=== PATIENT | male | born 1955 | race Caucasian/White ===

== ENCOUNTER 2025-02-26 07:23 | Inpatient (IN) | payer MEDICARE, SELFPAY ==
[2025-02-26] VITALS (201 sets, daily range): BP systolic 64–144; BP diastolic 32–90; PULSE 80–151; RESP 14–27; TEMP 34.5–37.3; O2SAT 91–100; BMI 20.2; BMI 21.9
--- NOTE | 2025-02-26 07:29 | ED.WEAKNESS ---
HPI - Weakness General Chief complaint: Altered Mental Status Stated complaint: Diarrhea x3days History of Present Illness HPI Narrative: 69-year-old gentleman with no significant past medical or surgical history presents via EMS with multiple episodes of diarrhea since along with nonbilious nonbloody vomiting today given 50 of Benadryl and 4 Zofran by EMS prior to arrival for rash on his chest. Patient denies any recent antibiotic use, sick contacts, chest pain, lightheadedness, fever, chills, body aches, cough, sore throat, abdominal pain, back pain, urinary complaints. Other than what is stated 14 point review of system is negative. Related Data Allergies Allergy/AdvReac Type Severity Reaction Status Date / Time No Known Drug Allergies Allergy Verified 02/26/25 08:06 Review of Systems Review of Systems ROS Unobtainable: All systems reviewed & are unremarkable except as noted in HPI and below Patient History Social History Smoking Status: Never smoker Exam Narrative Exam Narrative: GENERAL: [69] year old patient appears stated age. Well-developed patient, in mild distress. HEAD: Atraumatic. Normocephalic. EYES: Pupils equal round and reactive. Extraocular motions intact. No scleral icterus. No injection or drainage. ENT: Nose without bleeding, purulent drainage. Throat without erythema, tonsillar hypertrophy or exudate. Airway patent. Swelling upper lip NECK: Trachea midline. Non tender CARDIOVASCULAR: Tachycardic irregularly irregular rate and rhythm without murmurs, gallops, or rubs. RESPIRATORY: Clear to auscultation. Breath sounds equal bilaterally. No wheezes, rales, or rhonchi. GASTROINTESTINAL: Abdomen soft, non-tender, nondistended. EXTREMITIES: No edema or joint tenderness. BACK: Nontender without deformity or crepitance. No flank tenderness. NEURO: AOx3. SKIN: No rash or erythema of visible areas Initial Vital Signs Initial Vital Signs: Vital Signs Pulse Rate 151 H 02/26/25 07:31 Course Orders Ordered: ED Orders 02/26/25 07:36 XR chest 1V Stat EKG-12 Lead Stat 02/26/25 07:37 Clostridium Difficile Tox PCR Stat 02/26/25 07:50 Complete Blood Count AUTO DIFF Stat Comprehensive Metabolic Panel Stat Lactate (Lactic Acid) Stat Lipase Stat MAG [Magnesium] Stat PTT Partial Thromboplastin Antoine Stat Procalcitonin Stat Prothrombin Time INR Stat Troponin I Stat 02/26/25 07:55 Blood Culture Stat 02/26/25 08:09 Covid-19 + FLU A/B + RSV - PCR Stat 02/26/25 08:14 CT abdomen pelvis w con Stat 02/26/25 08:28 Venous Blood Gas Routine 02/26/25 08:45 UA Complete [Urinalysis and Microscopic] Stat 02/26/25 09:36 EKG-12 Lead Stat 02/26/25 09:53 TSH [Thyroid Stimulating Hormone] Stat 02/26/25 10:25 Trop I [Troponin I] Stat NOREPINEPHRINE BITARTRATE/D5W (Levophed) 4 mg in 250 mls @ 26.175 mls/hr IV TITRATE ARTURO; Protocol Last Admin: 02/26/25 09:24 Dose: 0.1 mcg/kg/min, 26.175 mls/hr Documented By: JESSICA Ondansetron HCl (Ondansetron 4 Mg/2 Ml Inj) 4 mg IV NOW PRN PRN Reason: Nausea And Vomiting Ondansetron HCl (Ondansetron 4 Mg Odt) 4 mg PO NOW PRN PRN Reason: Nausea And Vomiting Discontinued Medications Ceftriaxone Sodium 2,000 mg/ (Sodium Chloride) 100 mls @ 200 mls/hr IV NOW ONE Stop: 02/26/25 09:11 Last Infusion: 02/26/25 10:07 Dose: Infused Documented By: Admin: 02/26/25 09:24 Dose: 200 mls/hr Documented By: JESSICA Lactated Ringer's (Lactated Ringers) 1,000 mls @ 1,000 mls/hr IV BOLUS ONE Stop: 02/26/25 10:28 Last Infusion: 02/26/25 10:00 Dose: Infused Documented By: Admin: 02/26/25 09:30 Dose: 1,000 mls/hr Documented By: NELDAF Lactated Ringer's (Lactated Ringers) 1,000 mls @ 1,000 mls/hr IV BOLUS ONE Stop: 02/26/25 08:39 Last Infusion: 02/26/25 08:05 Dose: Infused Documented By: Admin: 02/26/25 07:40 Dose: 1,000 mls/hr Documented By: JESSICA Lactated Ringer's (Lactated Ringers) 1,000 mls @ 1,000 mls/hr IV BOLUS ONE Stop: 02/26/25 09:29 Last Infusion: 02/26/25 09:00 Dose: Infused Documented By: Admin: 02/26/25 08:30 Dose: 1,000 mls/hr Documented By: JESSICA Lactated Ringer's (Lactated Ringers) 1,000 mls @ 1,000 mls/hr IV BOLUS ONE Stop: 02/26/25 08:59 Last Infusion: 02/26/25 08:30 Dose: Infused Documented By: Admin: 02/26/25 08:00 Dose: 1,000 mls/hr Documented By: NELDAF Lactated Ringer's (Lactated Ringers) 1,000 mls @ 1,000 mls/hr IV BOLUS ONE Stop: 02/26/25 09:59 Last Infusion: 02/26/25 09:30 Dose: Infused Documented By: Admin: 02/26/25 09:00 Dose: 1,000 mls/hr Documented By: JESSICA Vital Signs Vital signs: Vital Signs - 8 hr 02/26/25 07:31 02/26/25 07:32 02/26/25 07:32 Temperature Pulse Rate 151 H 134 H Respiratory Rate 23 Blood Pressure 78/40 L Pulse Oximetry Oxygen Delivery Method 02/26/25 07:35 02/26/25 07:37 02/26/25 07:37 Temperature Pulse Rate 140 H 135 H Respiratory Rate 26 H 24 Blood Pressure 75/44 L Pulse Oximetry 92 Oxygen Delivery Method Room Air 02/26/25 07:40 02/26/25 07:41 02/26/25 07:41 Temperature Pulse Rate 126 H 127 H Respiratory Rate 25 H 25 H Blood Pressure 64/44 L Pulse Oximetry 94 Oxygen Delivery Method 02/26/25 07:43 02/26/25 07:43 02/26/25 07:45 Temperature Pulse Rate 119 H Respiratory Rate 23 Blood Pressure 70/41 L 78/35 L Pulse Oximetry Oxygen Delivery Method 02/26/25 07:45 02/26/25 07:45 02/26/25 07:50 Temperature Pulse Rate 122 H Respiratory Rate 25 H Blood Pressure 78/35 L 76/32 L Pulse Oximetry Oxygen Delivery Method 02/26/25 07:50 02/26/25 07:50 02/26/25 07:55 Temperature 94.6 F L Pulse Rate 125 H 117 H Respiratory Rate 24 22 Blood Pressure 76/32 L Pulse Oximetry 98 98 Oxygen Delivery Method 02/26/25 07:58 02/26/25 07:58 02/26/25 08:00 Temperature 95.2 F L Pulse Rate 113 H Respiratory Rate 22 Blood Pressure 78/48 L 80/37 L Pulse Oximetry 97 Oxygen Delivery Method 02/26/25 08:00 02/26/25 08:05 02/26/25 08:05 Temperature 95.2 F L 95.2 F L Pulse Rate 110 H 108 H Respiratory Rate 24 23 Blood Pressure 81/43 L Pulse Oximetry 97 97 Oxygen Delivery Method 02/26/25 08:06 02/26/25 08:10 02/26/25 08:10 Temperature 96.2 F L 94.8 F L Pulse Rate 115 H 113 H Respiratory Rate 26 H 23 Blood Pressure 67/38 L 88/54 L Pulse Oximetry 94 97 Oxygen Delivery Method Room Air 02/26/25 08:15 02/26/25 08:15 02/26/25 08:20 Temperature 94.6 F L 94.5 F L Pulse Rate 117 H 110 H Respiratory Rate 26 H 25 H Blood Pressure 81/52 L Pulse Oximetry 96 95 Oxygen Delivery Method 02/26/25 08:21 02/26/25 08:21 02/26/25 08:25 Temperature 94.5 F L 94.3 F L Pulse Rate 108 H 111 H Respiratory Rate 25 H 23 Blood Pressure 117/58 L Pulse Oximetry 95 96 Oxygen Delivery Method 02/26/25 08:25 02/26/25 08:30 02/26/25 08:33 Temperature 94.1 F L Pulse Rate 117 H Respiratory Rate 19 Blood Pressure 124/65 134/90 Pulse Oximetry 97 Oxygen Delivery Method 02/26/25 08:33 02/26/25 08:43 02/26/25 08:44 Temperature 94.1 F L 94.1 F L Pulse Rate 111 H 138 H Respiratory Rate 25 H Blood Pressure 133/59 L Pulse Oximetry 97 Oxygen Delivery Method 02/26/25 08:44 02/26/25 08:45 02/26/25 08:46 Temperature 94.1 F L 94.3 F L Pulse Rate 115 H 116 H Respiratory Rate 22 23 Blood Pressure 100/62 Pulse Oximetry 98 98 Oxygen Delivery Method 02/26/25 08:46 02/26/25 08:50 02/26/25 08:52 Temperature 94.3 F L 94.3 F L Pulse Rate 117 H 115 H Respiratory Rate 23 23 Blood Pressure 129/58 L Pulse Oximetry 98 97 Oxygen Delivery Method 02/26/25 08:52 02/26/25 08:55 02/26/25 08:55 Temperature 94.3 F L 94.5 F L Pulse Rate 114 H 109 H Respiratory Rate 21 21 Blood Pressure 98/52 L Pulse Oximetry 97 96 Oxygen Delivery Method 02/26/25 09:00 02/26/25 09:00 02/26/25 09:05 Temperature 94.6 F L 94.6 F L Pulse Rate 110 H 114 H Respiratory Rate 20 21 Blood Pressure 93/44 L Pulse Oximetry 96 97 Oxygen Delivery Method 02/26/25 09:05 02/26/25 09:10 02/26/25 09:10 Temperature 94.8 F L Pulse Rate 95 H Respiratory Rate 20 Blood Pressure 84/43 L 83/50 L Pulse Oximetry 96 Oxygen Delivery Method 02/26/25 09:15 02/26/25 09:15 02/26/25 09:20 Temperature 95.0 F L Pulse Rate 102 H Respiratory Rate 16 Blood Pressure 88/50 L 96/55 L Pulse Oximetry 97 Oxygen Delivery Method 02/26/25 09:20 02/26/25 09:25 02/26/25 09:25 Temperature 95.0 F L 95.0 F L Pulse Rate 94 H 99 H Respiratory Rate 19 19 Blood Pressure 106/62 Pulse Oximetry 97 97 Oxygen Delivery Method 02/26/25 09:30 02/26/25 09:31 02/26/25 09:31 Temperature 95.2 F L 95.2 F L Pulse Rate 93 H 98 H Respiratory Rate 19 17 Blood Pressure 108/59 L Pulse Oximetry 97 97 Oxygen Delivery Method 02/26/25 09:35 02/26/25 09:35 02/26/25 09:40 Temperature 95.4 F L 95.5 F L Pulse Rate 95 H 97 H Respiratory Rate 18 20 Blood Pressure 103/72 Pulse Oximetry 98 97 Oxygen Delivery Method 02/26/25 09:40 02/26/25 09:45 02/26/25 09:45 Temperature 95.7 F L Pulse Rate 102 H Respiratory Rate 18 Blood Pressure 99/56 L 108/68 Pulse Oximetry 98 Oxygen Delivery Method 02/26/25 09:50 02/26/25 09:51 02/26/25 09:51 Temperature 95.9 F L 95.9 F L Pulse Rate 95 H 96 H Respiratory Rate 20 20 Blood Pressure 105/50 L Pulse Oximetry 98 98 Oxygen Delivery Method 02/26/25 09:55 02/26/25 09:55 02/26/25 10:00 Temperature 96.1 F L 96.3 F L Pulse Rate 99 H 102 H Respiratory Rate 19 21 Blood Pressure 99/62 Pulse Oximetry 99 99 Oxygen Delivery Method 02/26/25 10:00 02/26/25 10:05 02/26/25 10:05 Temperature 96.3 F L Pulse Rate 96 H Respiratory Rate 18 Blood Pressure 98/73 103/67 Pulse Oximetry 100 Oxygen Delivery Method 02/26/25 10:10 02/26/25 10:10 02/26/25 10:14 Temperature 96.4 F L 96.6 F L Pulse Rate 92 H 97 H Respiratory Rate 19 20 Blood Pressure 100/65 Pulse Oximetry 99 100 Oxygen Delivery Method 02/26/25 10:14 02/26/25 10:15 02/26/25 10:15 Temperature 96.6 F L Pulse Rate 99 H Respiratory Rate 19 Blood Pressure 106/71 113/75 Pulse Oximetry 100 Oxygen Delivery Method 02/26/25 10:20 02/26/25 10:21 02/26/25 10:21 Temperature 96.8 F L 97.0 F L Pulse Rate 100 H 103 H Respiratory Rate 21 17 Blood Pressure 117/76 Pulse Oximetry 100 100 Oxygen Delivery Method 02/26/25 10:25 02/26/25 10:25 02/26/25 10:30 Temperature 97.0 F L 97.2 F L Pulse Rate 98 H 101 H Respiratory Rate 20 19 Blood Pressure 117/67 Pulse Oximetry 100 100 Oxygen Delivery Method 02/26/25 10:30 02/26/25 10:35 02/26/25 10:36 Temperature 97.3 F L 97.3 F L Pulse Rate 107 H 106 H Respiratory Rate 18 19 Blood Pressure 110/69 Pulse Oximetry 100 100 Oxygen Delivery Method 02/26/25 10:36 02/26/25 10:40 02/26/25 10:40 Temperature 97.5 F L Pulse Rate 107 H Respiratory Rate 18 Blood Pressure 120/55 L 121/58 L Pulse Oximetry 100 Oxygen Delivery Method 02/26/25 10:45 02/26/25 10:45 02/26/25 10:50 Temperature 97.7 F 97.7 F Pulse Rate 118 H 119 H Respiratory Rate 17 21 Blood Pressure 122/64 Pulse Oximetry 100 100 Oxygen Delivery Method 02/26/25 10:50 02/26/25 10:55 02/26/25 10:55 Temperature 97.9 F Pulse Rate 129 H Respiratory Rate 25 H Blood Pressure 94/51 L 104/64 Pulse Oximetry 97 Oxygen Delivery Method 02/26/25 11:00 02/26/25 11:00 02/26/25 11:05 Temperature 98.1 F Pulse Rate 130 H Respiratory Rate 20 Blood Pressure 90/52 L 85/57 L Pulse Oximetry 93 Oxygen Delivery Method 02/26/25 11:05 02/26/25 11:10 Temperature 98.2 F 98.4 F Pulse Rate 127 H 115 H Respiratory Rate 19 19 Blood Pressure Pulse Oximetry 97 100 Oxygen Delivery Method MDM - Weakness Lab Data 02/26/25 07:50 02/26/25 07:50 Labs: Lab Results 02/26/25 02/26/25 02/26/25 Range/Units 07:33 07:50 08:09 WBC 9.6 (4.5-11.0) X10^3/uL RBC 6.41 H (4.5-5.9) X10^6/uL Hgb 19.1 H (13.5-17.5) g/dL Hct 58.2 H (41-53) % MCV 90.7 (80-100) fL MCH 29.8 (26-34) PG MCHC 32.8 (30-36) % RDW 14.3 (11.6-14.8) % Plt Count 325 (150-400) X10^3/uL Neut % (Auto) 84.6 H (50-75) % Lymph % (Auto) 10.0 L (25-40) % Burn[place] % (Auto) 4.5 (3-14) % Eos % (Auto) 0.4 L (2-4) % Baso % (Auto) 0.5 (0-2) % Neut # (Auto) 8100 H (1358-5291) /uL Lymph # (Auto) 1000 L (0209-0430) /uL Burnett # (Auto) 400 (0-900) /uL Eos # (Auto) 0 (0-450) /uL Baso # (Auto) 0 (0-100) /uL RBC Morphology Normal morphology PT 12.3 (9.4-12.5) SECONDS INR 1.1 (0.9-1.3) APTT 36 (25.1-36.5) SECONDS VBG pH (7.33-7.43) VBG pCO2 (45-50) mmHg VBG pO2 (35-45) mmHg VBG HCO3 (24-28) mmol/L VBG Total CO2 (24-29) mmol/L VBG O2 Saturation (70-75) % VBG Base Excess (0-4) mmol/L FiO2 % % Sodium 134 L (137-145) mmol/L Potassium 5.1 (3.4-5.1) mmol/L Chloride 110 H (98-107) mmol/L Carbon Dioxide 8 L* (22-32) mmol/L BUN 45 H (9-20) mg/dL Creatinine 3.22 H (0.66-1.25) mg/dL Estimated GFR 20 L (>60) mL/min BUN/Creatinine Ratio 14.0 (6-22) Glucose 135 H (70-99) mg/dL POC Whole Bld Glucose 141 H (70-99) mg/dL Lactate 3.3 H (0.7-2.1) mmol/L Calcium 8.4 (8.4-10.2) mg/dL Magnesium 2.1 (1.6-2.3) mg/dL Total Bilirubin 0.8 (0.2-1.3) mg/dL AST 40 (17-59) IU/L ALT 85 H (<50) IU/L Alkaline Phosphatase 114 (38-126) U/L Troponin I 0.044 H (0.01-0.034) ng/mL Total Protein 6.5 (6.3-8.2) g/dL Albumin 3.4 L (3.5-5.0) g/dL Globulin 3.1 (1.7-4.1) g/dL Albumin/Globulin Ratio 1.1 (1.0-2.8) Lipase 177 (23-300) U/L Procalcitonin 0.789 H (<0.5) ng/mL TSH (0.47-4.68) uIU/mL Urine Color Urine Appearance Urine pH (4.5-8.0) Ur Specific [place] (1.000-1.035) Urine Protein (Negative) Urine Glucose (UA) (Negative) g/dL Urine Ketones (NEGATIVE) Urine Occult Blood (Negative) Urine Nitrate (Negative) Urine Bilirubin (NEGATIVE) Urine Urobilinogen (0.2) E.U./dL Ur Leukocyte Esterase (NEGATIVE) Urine RBC (0-5/HPF) Urine WBC (0-5/HPF) Ur Squamous Epith Cells (0-5/HPF) Amorphous Sediment Urine Bacteria (None) Hyaline Casts (None) Ur Culture Indicated? Vol Urine Centrifuged SARS-CoV-2 (PCR) Negative (Negative) Influenza A (RT-PCR) Flu a negative (NEGATIVE) Influenza B (RT-PCR) Flu b negative (NEGATIVE) RSV (PCR) Negative (Negative) 02/26/25 02/26/25 02/26/25 Range/Units 08:28 08:45 09:53 WBC (4.5-11.0) X10^3/uL RBC (4.5-5.9) X10^6/uL Hgb (13.5-17.5) g/dL Hct (41-53) % MCV (80-100) fL MCH (26-34) PG MCHC (30-36) % RDW (11.6-14.8) % Plt Count (150-400) X10^3/uL Neut % (Auto) (50-75) % Lymph % (Auto) (25-40) % Burnett % (Auto) (3-14) % Eos % (Auto) (2-4) % Baso % (Auto) (0-2) % Neut # (Auto) (9444-7187) /uL Lymph # (Auto) (9176-1997) /uL Burnett # (Auto) (0-900) /uL Eos # (Auto) (0-450) /uL Baso # (Auto) (0-100) /uL RBC Morphology PT (9.4-12.5) SECONDS INR (0.9-1.3) APTT (25.1-36.5) SECONDS VBG pH 7.17 L* (7.33-7.43) VBG pCO2 26.8 L (45-50) mmHg VBG pO2 57 H (35-45) mmHg VBG HCO3 10 L (24-28) mmol/L VBG Total CO2 10 L (24-29) mmol/L VBG O2 Saturation 82 H (70-75) % VBG Base Excess -17.1 L (0-4) mmol/L FiO2 % 21 % % Sodium (137-145) mmol/L Potassium (3.4-5.1) mmol/L Chloride (98-107) mmol/L Carbon Dioxide (22-32) mmol/L BUN (9-20) mg/dL Creatinine (0.66-1.25) mg/dL Estimated GFR (>60) mL/min BUN/Creatinine Ratio (6-22) Glucose (70-99) mg/dL POC Whole Bld Glucose (70-99) mg/dL Lactate 3.1 H (0.7-2.1) mmol/L Calcium (8.4-10.2) mg/dL Magnesium (1.6-2.3) mg/dL Total Bilirubin (0.2-1.3) mg/dL AST (17-59) IU/L ALT (<50) IU/L Alkaline Phosphatase (38-126) U/L Troponin I (0.01-0.034) ng/mL Total Protein (6.3-8.2) g/dL Albumin (3.5-5.0) g/dL Globulin (1.7-4.1) g/dL Albumin/Globulin Ratio (1.0-2.8) Lipase (23-300) U/L Procalcitonin (<0.5) ng/mL TSH 10.1 H (0.47-4.68) uIU/mL Urine Color Yellow Urine Appearance Sl cloudy Urine pH 5.5 (4.5-8.0) Ur Specific [place] >=1.030 H (1.000-1.035) Urine Protein 1+ H (Negative) Urine Glucose (UA) Negative (Negative) g/dL Urine Ketones Trace H (NEGATIVE) Urine Occult Blood Negative (Negative) Urine Nitrate Negative (Negative) Urine Bilirubin Negative (NEGATIVE) Urine Urobilinogen 1.0 (0.2) E.U./dL Ur Leukocyte Esterase Negative (NEGATIVE) Urine RBC 0-1/hpf (0-5/HPF) Urine WBC 0-1/hpf (0-5/HPF) Ur Squamous Epith Cells 1-5 /hpf (0-5/HPF) Amorphous Sediment 2+ Urine Bacteria Occasional (0-1) (None) Hyaline Casts 5-10/lpf (None) Ur Culture Indicated? Cult not indicated Vol Urine Centrifuged 10ml (spun) SARS-CoV-2 (PCR) (Negative) Influenza A (RT-PCR) (NEGATIVE) Influenza B (RT-PCR) (NEGATIVE) RSV (PCR) (Negative) 02/26/25 Range/Units 10:25 WBC (4.5-11.0) X10^3/uL RBC (4.5-5.9) X10^6/uL Hgb (13.5-17.5) g/dL Hct (41-53) % MCV (80-100) fL MCH (26-34) PG MCHC (30-36) % RDW (11.6-14.8) % Plt Count (150-400) X10^3/uL Neut % (Auto) (50-75) % Lymph % (Auto) (25-40) % Burnett % (Auto) (3-14) % Eos % (Auto) (2-4) % Baso % (Auto) (0-2) % Neut # (Auto) (0374-1804) /uL Lymph # (Auto) (1423-7925) /uL Burnett # (Auto) (0-900) /uL Eos # (Auto) (0-450) /uL Baso # (Auto) (0-100) /uL RBC Morphology PT (9.4-12.5) SECONDS INR (0.9-1.3) APTT (25.1-36.5) SECONDS VBG pH (7.33-7.43) VBG pCO2 (45-50) mmHg VBG pO2 (35-45) mmHg VBG HCO3 (24-28) mmol/L VBG Total CO2 (24-29) mmol/L VBG O2 Saturation (70-75) % VBG Base Excess (0-4) mmol/L FiO2 % % Sodium (137-145) mmol/L Potassium (3.4-5.1) mmol/L Chloride (98-107) mmol/L Carbon Dioxide (22-32) mmol/L BUN (9-20) mg/dL Creatinine (0.66-1.25) mg/dL Estimated GFR (>60) mL/min BUN/Creatinine Ratio (6-22) Glucose (70-99) mg/dL POC Whole Bld Glucose (70-99) mg/dL Lactate (0.7-2.1) mmol/L Calcium (8.4-10.2) mg/dL Magnesium (1.6-2.3) mg/dL Total Bilirubin (0.2-1.3) mg/dL AST (17-59) IU/L ALT (<50) IU/L Alkaline Phosphatase (38-126) U/L Troponin I 0.049 H (0.01-0.034) ng/mL Total Protein (6.3-8.2) g/dL Albumin (3.5-5.0) g/dL Globulin (1.7-4.1) g/dL Albumin/Globulin Ratio (1.0-2.8) Lipase (23-300) U/L Procalcitonin (<0.5) ng/mL TSH (0.47-4.68) uIU/mL Urine Color Urine Appearance Urine pH (4.5-8.0) Ur Specific [place] (1.000-1.035) Urine Protein (Negative) Urine Glucose (UA) (Negative) g/dL Urine Ketones (NEGATIVE) Urine Occult Blood (Negative) Urine Nitrate (Negative) Urine Bilirubin (NEGATIVE) Urine Urobilinogen (0.2) E.U./dL Ur Leukocyte Esterase (NEGATIVE) Urine RBC (0-5/HPF) Urine WBC (0-5/HPF) Ur Squamous Epith Cells (0-5/HPF) Amorphous Sediment Urine Bacteria (None) Hyaline Casts (None) Ur Culture Indicated? Vol Urine Centrifuged SARS-CoV-2 (PCR) (Negative) Influenza A (RT-PCR) (NEGATIVE) Influenza B (RT-PCR) (NEGATIVE) RSV (PCR) (Negative) Imaging Data Chest x-ray: Radiologist Impression: [address] [address] XRay Report Signed Patient: Wicho Blackburn MR#: [id number] : 1955 Acct:[id number] Age/Sex: 69 / M Date of Service: 02/26/25 Loc: ED Accession Number: [id number] Procedure: XR chest 1V Ordering Provider: Satish Russo D.O. PROCEDURE: XR CHEST 1V INDICATIONS: suspected sepsis TECHNIQUE: One view of the chest was acquired. COMPARISON: None. FINDINGS: Surgical changes and devices: Resuscitation equipment overlies the patient. Lungs and pleura: Lungs are clear. No pleural effusions or pneumothorax. Mediastinum: Mediastinal contours appear normal. Heart size is normal. Bones and chest wall: No suspicious bony lesions. Overlying soft tissues appear unremarkable. IMPRESSION: No acute cardiopulmonary abnormality is seen. Dictated by: Parish Butler M.D. on 02/26/2025 at 8:06 Approved by: Parish Butler M.D. on 02/26/2025 at 8:07 CT scan - abdomen/pelvis: Radiologist Impression: [place] [address] CT Scan Report Signed Patient: Wicho Blackburn MR#: [id number] : 1955 Acct:[id number] Age/Sex: 69 / M Date of Service: 02/26/25 Loc: ED Accession Number: [id number] Procedure: CT abdomen pelvis w con Ordering Provider: Satish Russo D.O. PROCEDURE: CT ABDOMEN PELVIS W CON INDICATIONS: abd pain/diarrhea TECHNIQUE: After the administration of intravenous contrast, axial sections acquired from the lung bases to the pubic symphysis. Coronal and sagittal reformats were performed. For radiation dose reduction, the following was used: automated exposure control, adjustment of mA and/or kV according to patient size. COMPARISON: None. FINDINGS: Image quality: Diagnostic. Lower Chest: No significant findings. ABDOMEN: Liver: No solid mass. Gallbladder: No radiopaque gallstones or wall thickening. Biliary ducts: No biliary dilation. Pancreas: No ductal dilation. Spleen: Size is within normal limits. Adrenal Glands: No adrenal nodules. Kidneys and Ureters: No hydronephrosis. No solid mass. No complex renal cystic lesion which requires follow up. Stomach and Bowel: Long segment bowel wall thickening of the distal ileum. Before this segment of bowel wall thickening there is some moderately dilated loops of small bowel with air-fluid levels additional loops of long segment bowel wall thickening throughout the abdomen. Numerous mediastinal lymphadenopathy Peritoneum: No abnormal intraperitoneal fluid. No free air. Ventral Wall: No significant ventral hernia. Abdominal Nodes: Numerous mesenteric lymphadenopathy. Moderately prominent lymph nodes in the periaortic region. Jenni hepatic lymph nodes are prominent. Vessels: Aorta and inferior vena cava are normal in size. PELVIS: Pelvic Organs: Unremarkable. Bladder: No bladder wall thickening, accounting for underdistention. Pelvic Nodes: No enlarged lymph nodes. Miscellaneous: No inguinal hernias are seen. Bones: No aggressive osseous abnormality. IMPRESSION: 1. Multiple segments of small bowel wall thickening with air-fluid levels concerning for enteritis. 2. Given the intermittent nature of bowel wall thickening cannot and exclude chronic inflammatory disease, clinical correlation is recommended. 3. Several loops of prominent fluid-filled bowel likely representing ileus without discrete obstruction Dictated by: Parish Butler M.D. on 02/26/2025 at 8:36 Approved by: Parish Butler M.D. on 02/26/2025 at 8:44 ECG Data Interpretation: Afib HR 101 [place] undetermined QRS [address]-t wave change No previous EKG to compare MDM Narrative Medical decision making narrative: All lab work, vital signs, nurse triage note, medication list, previous ER visits, and all imaging studies reviewed. CXR no acute process. WBC 9.6 hemoglobin 19.1 platelet 325 INR 1.1 VBG pH 7.17 bicarb of 10 base excess -17.1 sodium 134 potassium 5.1 magnesium 2.1 chloride 110 CO2 8 145 creatinine 3.22 glucose 135 lactic 3.3 procalcitonin 0.789 urine trace ketones +1 protein specific gravity greater than 1.030- nitrite negative leukocyte COVID flu RSV negative. Troponin 1st set 0.044 CT abdomen and pelvis showed multiple segments of small bowel wall thickening with air-fluid levels concerning for enteritis. Given the intermittent nature of bowel wall thickening can not and exclude chronic inflammatory disease clinical correlation is recommended. Several loops of prominent fluid-filled bowel likely representing ileus without discrete obstruction. Chest x-ray showed no acute process. Patient given 4L of LR for fluid resuscitation for which the blood pressure responded to 120s over 80s but then blood pressure dropped to 80s over 50s as such patient was started on Levophed and also given another L of LR and Rocephin 2 g IV. Case discussed with adzing and boring machine operator who believes this is more metabolic and not cardiac cause of elevated troponin and to start phenylephrine instead of Levophed and for rate control diltiazem or esmolol drip. Differential diagnosis includes C diff, COVID flu RSV, hypovolemic shock, acute renal impairment, electrolyte derangement, viral illness, obstruction. Case discussed with Dr. Moody surgeon at the request of Dr. Cordova adzing and boring machine operator who will be the consult on the case. Case discussed with Dr. Parsons who has graciously accepted the patient for inpatient admission Discharge Plan Departure Patient Disposition: Admitted As Inpatient Clinical Impression: Atrial fibrillation with rapid ventricular response, Hypovolemic shock Allergic reaction Qualifiers: Encounter type: initial encounter Qualified Code(s): T78.40XA - Allergy, unspecified, initial encounter Admit Date/Time: 02/26/25 11:33 Admit Provider: Valente Dow
--- NOTE | 2025-02-26 07:35 | EKG_ITS ---
[address] [address] Test Date: 2025-02-26 Pat Name: Wicho Blackburn Department: Room: Gender: Male [employer]: MARLIN : 1955 Requested By: Order Number: [id number] Reading MD: Tristan Park Measurements Intervals [place] Rate: 132 P: MN: QRS: -88 QRSD: 62 T: 84 QT: 302 QTc: 447 Interpretive Statements Atrial fibrillation with rapid ventricular response Left axis deviation Anterior infarct , age undetermined Electronically Signed On 03-02-2025 7:56:54 PDT by Tristan Park
--- NOTE | 2025-02-26 07:36 | DI.RAD.S_ITS ---
PROCEDURE: XR CHEST 1V INDICATIONS: suspected sepsis TECHNIQUE: One view of the chest was acquired. COMPARISON: None. FINDINGS: Surgical changes and devices: Resuscitation equipment overlies the patient. Lungs and pleura: Lungs are clear. No pleural effusions or pneumothorax. Mediastinum: Mediastinal contours appear normal. Heart size is normal. Bones and chest wall: No suspicious bony lesions. Overlying soft tissues appear unremarkable. IMPRESSION: No acute cardiopulmonary abnormality is seen. Dictated by: Parish Butler M.D. on 02/26/2025 at 8:06 Approved by: Parish Butler M.D. on 02/26/2025 at 8:07
[2025-02-26] MEDS: LACTATED RINGERS 1,000 ML 1000 ML IV ×5 (07:40→09:30)
--- NOTE | 2025-02-26 08:14 | DI.CT.S_ITS ---
PROCEDURE: CT ABDOMEN PELVIS W CON INDICATIONS: abd pain/diarrhea TECHNIQUE: After the administration of intravenous contrast, axial sections acquired from the lung bases to the pubic symphysis. Coronal and sagittal reformats were performed. For radiation dose reduction, the following was used: automated exposure control, adjustment of mA and/or kV according to patient size. COMPARISON: None. FINDINGS: Image quality: Diagnostic. Lower Chest: No significant findings. ABDOMEN: Liver: No solid mass. Gallbladder: No radiopaque gallstones or wall thickening. Biliary ducts: No biliary dilation. Pancreas: No ductal dilation. Spleen: Size is within normal limits. Adrenal Glands: No adrenal nodules. Kidneys and Ureters: No hydronephrosis. No solid mass. No complex renal cystic lesion which requires follow up. Stomach and Bowel: Long segment bowel wall thickening of the distal ileum. Before this segment of bowel wall thickening there is some moderately dilated loops of small bowel with air-fluid levels additional loops of long segment bowel wall thickening throughout the abdomen. Numerous mediastinal lymphadenopathy Peritoneum: No abnormal intraperitoneal fluid. No free air. Ventral Wall: No significant ventral hernia. Abdominal Nodes: Numerous mesenteric lymphadenopathy. Moderately prominent lymph nodes in the periaortic region. [place] hepatic lymph nodes are prominent. Vessels: Aorta and inferior vena cava are normal in size. PELVIS: Pelvic Organs: Unremarkable. Bladder: No bladder wall thickening, accounting for underdistention. Pelvic Nodes: No enlarged lymph nodes. Miscellaneous: No inguinal hernias are seen. Bones: No aggressive osseous abnormality. IMPRESSION: 1. Multiple segments of small bowel wall thickening with air-fluid levels concerning for enteritis. 2. Given the intermittent nature of bowel wall thickening cannot and exclude chronic inflammatory disease, clinical correlation is recommended. 3. Several loops of prominent fluid-filled bowel likely representing ileus without discrete obstruction Dictated by: Parish Butler M.D. on 02/26/2025 at 8:36 Approved by: Parish Butler M.D. on 02/26/2025 at 8:44
[2025-02-26 08:16] LABS: Add Manual Diff / Slide Review NO; Hematocrit 58.2 % (41-53); Hemoglobin 19.1 g/dL (13.5-17.5); Lymphocytes Absolute Auto 1000 /uL (1100-4500); Mean Corpuscular HGB Conc 32.8 % (30-36); Mean Corpuscular Hemoglobin 29.8 PG (26-34); Mean Corpuscular Volume 90.7 fL (80-100); Platelet Count 325 X10^3/uL (150-400)
[2025-02-26 08:21] LABS: INR 1.1 (0.9-1.3); Prothrombin Time 12.3 SECONDS (9.4-12.5)
[2025-02-26 08:24] LABS: PTT Partial Thromboplastin Tim 36 SECONDS (25.1-36.5)
[2025-02-26 08:25] LABS: Alanine Aminotransferase 85 IU/L (<50); Albumin 3.4 g/dL (3.5-5.0); Albumin Globulin Ratio 1.1 (1.0-2.8); Alkaline Phosphatase 114 U/L (38-126); Blood Urea Nitrogen 45 mg/dL (9-20); Calcium 8.4 mg/dL (8.4-10.2); Chloride 110 mmol/L (98-107); Estimated Glomerular Filt Rate 20 mL/min (>60); Globulin 3.1 g/dL (1.7-4.1); Glucose 135 mg/dL (70-99); Lactate (Lactic Acid) 3.3 mmol/L (0.7-2.1); Lipase 177 U/L (23-300); Potassium 5.1 mmol/L (3.4-5.1); Sodium 134 mmol/L (137-145); Total Protein 6.5 g/dL (6.3-8.2)
[2025-02-26 08:30] LABS: HEMOLYSIS 52 (0-50)
[2025-02-26 08:31] LABS: Carbon Dioxide 8 mmol/L (22-32)
[2025-02-26 08:34] LABS: Base Excess VBG -17.1 mmol/L (0-4); HCO3 VBG 10 mmol/L (24-28); Oxygen Saturation VBG 82 % (70-75); PCO2 VBG 26.8 mmHg (45-50); PO2 VBG 57 mmHg (35-45); Total CO2 VBG 10 mmol/L (24-29); pH VBG 7.17 (7.33-7.43)
[2025-02-26 08:41] LABS: Procalcitonin 0.789 ng/mL (<0.5)
[2025-02-26 08:50] LABS: Influenza A - CEPHEID Flu A NEGATIVE (NEGATIVE); Influenza B - CEPHEID Flu B NEGATIVE (NEGATIVE)
[2025-02-26 08:51] LABS: COVID-19 CEPHEID 4-PLEX PCR Negative (Negative)
[2025-02-26 09:06] LABS: Appearance Urine UA SL CLOUDY; Bilirubin Urine UA NEGATIVE (NEGATIVE); Color Urine UA YELLOW; Glucose Urine UA NEGATIVE (Negative); Ketones Urine UA TRACE (NEGATIVE); Leukocyte Esterase Urine UA NEGATIVE (NEGATIVE); Nitrite Urine UA NEGATIVE (Negative); Occult Blood Urine UA NEGATIVE (Negative); Protein Urine UA 1+ (Negative); Specific Gravity Urine UA >=1.030 (1.000-1.035); Urobilinogen Urine UA 1.0 E.U./dL (0.2); pH Urine UA 5.5 (4.5-8.0)
[2025-02-26 09:22] LABS: RBC Morphology Normal Morphology
[2025-02-26] MEDS: cefTRIAXone 2,000 MG in SODIUM CHLORIDE 0.9% 100 ML 200 MG IV (09:24)
[2025-02-26] MEDS: NOREPINEPHRINE BITARTRATE/D5W 4 MG/250 ML PLAST..BAG 26.175 MG IV (09:24)
[2025-02-26 09:36] LABS: Culture Indicated Urine Cult Not Indicated
[2025-02-26 09:36] LABS: Magnesium 2.1 mg/dL (1.6-2.3)
[2025-02-26 09:40] LABS: Reflexed Lactate in 2 Hours Y
--- NOTE | 2025-02-26 09:40 | EKG_ITS ---
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
[2025-02-26 09:49] LABS: Troponin I 0.044 ng/mL (0.01-0.034)
[2025-02-26 10:22] LABS: Lactate 2HR (Lactic Acid Rflx) 3.1 mmol/L (0.7-2.1)
[2025-02-26 10:54] LABS: Thyroid Stimulating Hormone 10.1 uIU/mL (0.47-4.68)
[2025-02-26 10:59] LABS: Troponin I 0.049 ng/mL (0.01-0.034)
[2025-02-26] MEDS: PIPERACILLIN/TAZO 4.5 GM in SODIUM CHLORIDE 0.9% 100 ML IV (13:15)
--- NOTE | 2025-02-26 13:25 | P.HP_ITS ---
History of Present Illness History of Present Illness Chief complaint: Diarrhea x3days Narrative: Chief complaint: Eight months of cramping and diarrhea with colitis with bloody diarrhea septic shock and lactic acidosis suspicious for inflammatory bowel disease History of present illness: 02/26: 69-year-old at 8 months on and off of diarrhea has been experimenting with lot of changes in diet but this has not had any notable pattern or effect approximately 2 weeks prior to admission is diarrhea and intolerance to food has worsened came to the emergency department for evaluation Findings in the emergency department significant for: White count 9.6 with 85% neutrophils, venous blood gas with metabolic acidosis pH 7.17 pCO2 27 PO2 57 metabolic showing a CO2 of 8 sodium 134 potassium 5.1 procalcitonin of 0.[address] abdomen and pelvis: 1. Multiple segments of small bowel wall thickening with air-fluid levels concerning for enteritis. 2. Given the intermittent nature of bowel wall thickening cannot and exclude chronic inflammatory disease, clinical correlation is recommended. 3. Several loops of prominent fluid-filled bowel likely representing ileus without discrete obstruction Review of systems: No acute weight loss weight gain fatigue or fevers or chills Chest pain palpitations shortness for breath No significant abdominal pain No urinary symptoms No paresthesia paresis Vital signs: Temperature 97.7?, pulse 140 irregular, respirations initially 25 de-escalated to 16 after fluid resuscitation, blood pressure initially 94/72 improved to 1 0 9/59 after fluid resuscitation Physical exam: Slim elderly white male actually appearing quite fit HEENT unremarkable Heart irregularly irregular rhythm Oddly, abdomen is scaphoid and nontender bowel sounds present Extremities no edema For objective laboratory and imaging please see the bottom of the note Acute colitis with septic shock suspicious for inflammatory bowel disease: * Aggressive fluid resuscitation * Methylprednisolone 60 mg a day * GI film panel * IV Zosyn for colitis ([facility] 2019) * IV Flagyl to cover for C diff until GI film panel completed ([facility] 2019) * Avoid colonoscopy initially due to risk of perforation * Daily CRP * Surgical intervention if signs of toxic megacolon appear * Transfer to tertiary center for biologic rescue therapies if the above first- line not effective New onset atrial fibrillation rapid ventricular response * No previous history * Favor cardiotoxicity secondary to sepsis * Anticoagulated contraindicated due to GI bleeding * Per cardiology treat underlying cause DVT prophylaxis: * SCDs only Code status: * Full code blue Disposition: * Inpatient ICU care expect 3-4 days of hospitalization Time based billing: * 75 minutes were mount evaluation of this patient including [id number] evaluation direct physical examination discussion with patient's discussion with emergency provider and ICU care team review of objective laboratory and imaging data including direct view of images myself [facility] Social History household members: spouse Smoking Status: Never smoker alcohol intake: current Meds Home Medications and Allergies Home Medications ?Medication ?Instructions ?Recorded ?Confirmed ?Type No Known Home Medications 02/26/2509/17 History Allergies Allergy/AdvReac Type Severity Reaction Status Date / Time No Known Drug Allergies Allergy Verified 02/26/25 08:06 Exam Vital Signs (past 8 hours): - 02/26/25 07:31 02/26/25 07:32 02/26/25 07:32 Temperature Pulse Rate 151 H 134 H Respiratory Rate 23 Blood Pressure 78/40 L Pulse Oximetry Oxygen Delivery Method 02/26/25 07:35 02/26/25 07:37 02/26/25 07:37 Temperature Pulse Rate 140 H 135 H Respiratory Rate 26 H 24 Blood Pressure 75/44 L Pulse Oximetry 92 Oxygen Delivery Method Room Air 02/26/25 07:40 02/26/25 07:41 02/26/25 07:41 Temperature Pulse Rate 126 H 127 H Respiratory Rate 25 H 25 H Blood Pressure 64/44 L Pulse Oximetry 94 Oxygen Delivery Method 02/26/25 07:43 02/26/25 07:43 02/26/25 07:45 Temperature Pulse Rate 119 H Respiratory Rate 23 Blood Pressure 70/41 L 78/35 L Pulse Oximetry Oxygen Delivery Method 02/26/25 07:45 02/26/25 07:45 02/26/25 07:50 Temperature Pulse Rate 122 H Respiratory Rate 25 H Blood Pressure 78/35 L 76/32 L Pulse Oximetry Oxygen Delivery Method 02/26/25 07:50 02/26/25 07:50 02/26/25 07:55 Temperature 94.6 F L Pulse Rate 125 H 117 H Respiratory Rate 24 22 Blood Pressure 76/32 L Pulse Oximetry 98 98 Oxygen Delivery Method 02/26/25 07:58 02/26/25 07:58 02/26/25 08:00 Temperature 95.2 F L Pulse Rate 113 H Respiratory Rate 22 Blood Pressure 78/48 L 80/37 L Pulse Oximetry 97 Oxygen Delivery Method 02/26/25 08:00 02/26/25 08:05 02/26/25 08:05 Temperature 95.2 F L 95.2 F L Pulse Rate 110 H 108 H Respiratory Rate 24 23 Blood Pressure 81/43 L Pulse Oximetry 97 97 Oxygen Delivery Method 02/26/25 08:06 02/26/25 08:10 02/26/25 08:10 Temperature 96.2 F L 94.8 F L Pulse Rate 115 H 113 H Respiratory Rate 26 H 23 Blood Pressure 67/38 L 88/54 L Pulse Oximetry 94 97 Oxygen Delivery Method Room Air 02/26/25 08:15 02/26/25 08:15 02/26/25 08:20 Temperature 94.6 F L 94.5 F L Pulse Rate 117 H 110 H Respiratory Rate 26 H 25 H Blood Pressure 81/52 L Pulse Oximetry 96 95 Oxygen Delivery Method 02/26/25 08:21 02/26/25 08:21 02/26/25 08:25 Temperature 94.5 F L 94.3 F L Pulse Rate 108 H 111 H Respiratory Rate 25 H 23 Blood Pressure 117/58 L Pulse Oximetry 95 96 Oxygen Delivery Method 02/26/25 08:25 02/26/25 08:30 02/26/25 08:33 Temperature 94.1 F L Pulse Rate 117 H Respiratory Rate 19 Blood Pressure 124/65 134/90 Pulse Oximetry 97 Oxygen Delivery Method 02/26/25 08:33 02/26/25 08:43 02/26/25 08:44 Temperature 94.1 F L 94.1 F L Pulse Rate 111 H 138 H Respiratory Rate 25 H Blood Pressure 133/59 L Pulse Oximetry 97 Oxygen Delivery Method 02/26/25 08:44 02/26/25 08:45 02/26/25 08:46 Temperature 94.1 F L 94.3 F L Pulse Rate 115 H 116 H Respiratory Rate 22 23 Blood Pressure 100/62 Pulse Oximetry 98 98 Oxygen Delivery Method 02/26/25 08:46 02/26/25 08:50 02/26/25 08:52 Temperature 94.3 F L 94.3 F L Pulse Rate 117 H 115 H Respiratory Rate 23 23 Blood Pressure 129/58 L Pulse Oximetry 98 97 Oxygen Delivery Method 02/26/25 08:52 02/26/25 08:55 02/26/25 08:55 Temperature 94.3 F L 94.5 F L Pulse Rate 114 H 109 H Respiratory Rate 21 21 Blood Pressure 98/52 L Pulse Oximetry 97 96 Oxygen Delivery Method 02/26/25 09:00 02/26/25 09:00 02/26/25 09:05 Temperature 94.6 F L 94.6 F L Pulse Rate 110 H 114 H Respiratory Rate 20 21 Blood Pressure 93/44 L Pulse Oximetry 96 97 Oxygen Delivery Method 02/26/25 09:05 02/26/25 09:10 02/26/25 09:10 Temperature 94.8 F L Pulse Rate 95 H Respiratory Rate 20 Blood Pressure 84/43 L 83/50 L Pulse Oximetry 96 Oxygen Delivery Method 02/26/25 09:15 02/26/25 09:15 02/26/25 09:20 Temperature 95.0 F L Pulse Rate 102 H Respiratory Rate 16 Blood Pressure 88/50 L 96/55 L Pulse Oximetry 97 Oxygen Delivery Method 02/26/25 09:20 02/26/25 09:25 02/26/25 09:25 Temperature 95.0 F L 95.0 F L Pulse Rate 94 H 99 H Respiratory Rate 19 19 Blood Pressure 106/62 Pulse Oximetry 97 97 Oxygen Delivery Method 02/26/25 09:30 02/26/25 09:31 02/26/25 09:31 Temperature 95.2 F L 95.2 F L Pulse Rate 93 H 98 H Respiratory Rate 19 17 Blood Pressure 108/59 L Pulse Oximetry 97 97 Oxygen Delivery Method 02/26/25 09:35 02/26/25 09:35 02/26/25 09:40 Temperature 95.4 F L 95.5 F L Pulse Rate 95 H 97 H Respiratory Rate 18 20 Blood Pressure 103/72 Pulse Oximetry 98 97 Oxygen Delivery Method 02/26/25 09:40 02/26/25 09:45 02/26/25 09:45 Temperature 95.7 F L Pulse Rate 102 H Respiratory Rate 18 Blood Pressure 99/56 L 108/68 Pulse Oximetry 98 Oxygen Delivery Method 02/26/25 09:50 02/26/25 09:51 02/26/25 09:51 Temperature 95.9 F L 95.9 F L Pulse Rate 95 H 96 H Respiratory Rate 20 20 Blood Pressure 105/50 L Pulse Oximetry 98 98 Oxygen Delivery Method 02/26/25 09:55 02/26/25 09:55 02/26/25 10:00 Temperature 96.1 F L 96.3 F L Pulse Rate 99 H 102 H Respiratory Rate 19 21 Blood Pressure 99/62 Pulse Oximetry 99 99 Oxygen Delivery Method 02/26/25 10:00 02/26/25 10:05 02/26/25 10:05 Temperature 96.3 F L Pulse Rate 96 H Respiratory Rate 18 Blood Pressure 98/73 103/67 Pulse Oximetry 100 Oxygen Delivery Method 02/26/25 10:10 02/26/25 10:10 02/26/25 10:14 Temperature 96.4 F L 96.6 F L Pulse Rate 92 H 97 H Respiratory Rate 19 20 Blood Pressure 100/65 Pulse Oximetry 99 100 Oxygen Delivery Method 02/26/25 10:14 02/26/25 10:15 02/26/25 10:15 Temperature 96.6 F L Pulse Rate 99 H Respiratory Rate 19 Blood Pressure 106/71 113/75 Pulse Oximetry 100 Oxygen Delivery Method 02/26/25 10:20 02/26/25 10:21 02/26/25 10:21 Temperature 96.8 F L 97.0 F L Pulse Rate 100 H 103 H Respiratory Rate 21 17 Blood Pressure 117/76 Pulse Oximetry 100 100 Oxygen Delivery Method 02/26/25 10:25 02/26/25 10:25 02/26/25 10:30 Temperature 97.0 F L 97.2 F L Pulse Rate 98 H 101 H Respiratory Rate 20 19 Blood Pressure 117/67 Pulse Oximetry 100 100 Oxygen Delivery Method 02/26/25 10:30 02/26/25 10:35 02/26/25 10:36 Temperature 97.3 F L 97.3 F L Pulse Rate 107 H 106 H Respiratory Rate 18 19 Blood Pressure 110/69 Pulse Oximetry 100 100 Oxygen Delivery Method 02/26/25 10:36 02/26/25 10:40 02/26/25 10:40 Temperature 97.5 F L Pulse Rate 107 H Respiratory Rate 18 Blood Pressure 120/55 L 121/58 L Pulse Oximetry 100 Oxygen Delivery Method 02/26/25 10:45 02/26/25 10:45 02/26/25 10:50 Temperature 97.7 F 97.7 F Pulse Rate 118 H 119 H Respiratory Rate 17 21 Blood Pressure 122/64 Pulse Oximetry 100 100 Oxygen Delivery Method 02/26/25 10:50 02/26/25 10:55 02/26/25 10:55 Temperature 97.9 F Pulse Rate 129 H Respiratory Rate 25 H Blood Pressure 94/51 L 104/64 Pulse Oximetry 97 Oxygen Delivery Method 02/26/25 11:00 02/26/25 11:00 02/26/25 11:05 Temperature 98.1 F Pulse Rate 130 H Respiratory Rate 20 Blood Pressure 90/52 L 85/57 L Pulse Oximetry 93 Oxygen Delivery Method 02/26/25 11:05 02/26/25 11:10 02/26/25 11:11 Temperature 98.2 F 98.4 F 98.4 F Pulse Rate 127 H 115 H 119 H Respiratory Rate 19 19 20 Blood Pressure Pulse Oximetry 97 100 100 Oxygen Delivery Method 02/26/25 11:11 02/26/25 11:15 02/26/25 11:15 Temperature 98.4 F Pulse Rate 118 H Respiratory Rate 22 Blood Pressure 113/68 112/67 Pulse Oximetry 100 Oxygen Delivery Method 02/26/25 11:20 02/26/25 11:20 02/26/25 11:25 Temperature 98.6 F 98.6 F Pulse Rate 123 H 117 H Respiratory Rate 22 22 Blood Pressure 112/63 Pulse Oximetry 100 100 Oxygen Delivery Method 02/26/25 11:25 02/26/25 11:30 02/26/25 11:30 Temperature 98.6 F Pulse Rate 124 H Respiratory Rate 23 Blood Pressure 120/64 135/60 Pulse Oximetry 95 Oxygen Delivery Method 02/26/25 11:35 02/26/25 11:35 02/26/25 11:40 Temperature 98.8 F 98.8 F Pulse Rate 121 H 121 H Respiratory Rate 24 21 Blood Pressure 133/61 Pulse Oximetry 99 97 Oxygen Delivery Method 02/26/25 11:40 02/26/25 11:45 02/26/25 11:45 Temperature 98.8 F Pulse Rate 124 H Respiratory Rate 22 Blood Pressure 139/66 126/83 Pulse Oximetry 100 Oxygen Delivery Method 02/26/25 11:50 02/26/25 11:51 02/26/25 11:51 Temperature 99.0 F 99.0 F Pulse Rate 124 H 129 H Respiratory Rate 24 24 Blood Pressure 141/63 H Pulse Oximetry 100 100 Oxygen Delivery Method 02/26/25 11:55 02/26/25 11:56 02/26/25 11:56 Temperature 99.0 F 99.0 F Pulse Rate 126 H 125 H Respiratory Rate 26 H 22 Blood Pressure 144/71 H Pulse Oximetry 100 96 Oxygen Delivery Method 02/26/25 12:00 02/26/25 12:01 02/26/25 12:01 Temperature 99.1 F 99.1 F Pulse Rate 139 H 143 H Respiratory Rate 24 23 Blood Pressure 103/63 Pulse Oximetry 100 99 Oxygen Delivery Method 02/26/25 12:05 02/26/25 12:05 02/26/25 12:10 Temperature 99.1 F 99.1 F Pulse Rate 148 H 131 H Respiratory Rate 21 19 Blood Pressure 110/66 Pulse Oximetry 91 100 Oxygen Delivery Method 02/26/25 12:10 02/26/25 12:30 02/26/25 12:31 Temperature 97.7 F Pulse Rate 144 H Respiratory Rate 23 Blood Pressure 115/74 113/63 Pulse Oximetry 100 Oxygen Delivery Method Room Air 02/26/25 12:31 02/26/25 12:35 02/26/25 12:40 Temperature 97.7 F Pulse Rate 151 H 133 H 145 H Respiratory Rate 15 22 23 Blood Pressure 113/63 Pulse Oximetry 98 100 99 Oxygen Delivery Method 02/26/25 12:41 02/26/25 12:41 02/26/25 12:45 Temperature Pulse Rate 135 H 143 H Respiratory Rate 22 24 Blood Pressure 104/58 L Pulse Oximetry 99 100 Oxygen Delivery Method 02/26/25 12:50 02/26/25 12:55 02/26/25 13:00 Temperature Pulse Rate 139 H 135 H Respiratory Rate 25 H 25 H Blood Pressure 94/72 Pulse Oximetry 92 95 Oxygen Delivery Method 02/26/25 13:00 02/26/25 13:05 Temperature Pulse Rate 142 H 140 H Respiratory Rate 24 23 Blood Pressure Pulse Oximetry 92 96 Oxygen Delivery Method Oxygen Delivery Method Room Air Objective Labs 02/26/25 07:50 02/26/25 07:50 Labs: Laboratory Results - last 24 hr 02/26/25 02/26/25 02/26/25 07:33 07:50 08:09 WBC 9.6 RBC 6.41 H Hgb 19.1 H Hct 58.2 H MCV 90.7 MCH 29.8 MCHC 32.8 RDW 14.3 Plt Count 325 Neut % (Auto) 84.6 H Lymph % (Auto) 10.0 L [place] % (Auto) 4.5 Eos % (Auto) 0.4 L Baso % (Auto) 0.5 Neut # (Auto) 8100 H Lymph # (Auto) 1000 L [place] # (Auto) 400 Eos # (Auto) 0 Baso # (Auto) 0 RBC Morphology Normal morphology PT 12.3 INR 1.1 APTT 36 VBG pH VBG pCO2 VBG pO2 VBG HCO3 VBG Total CO2 VBG O2 Saturation VBG Base Excess FiO2 % Sodium 134 L Potassium 5.1 Chloride 110 H Carbon Dioxide 8 L* BUN 45 H Creatinine 3.22 H Estimated GFR 20 L BUN/Creatinine Ratio 14.0 Glucose 135 H POC Whole Bld Glucose 141 H Lactate 3.3 H Calcium 8.4 Magnesium 2.1 Total Bilirubin 0.8 AST 40 ALT 85 H Alkaline Phosphatase 114 Troponin I 0.044 H Total Protein 6.5 Albumin 3.4 L Globulin 3.1 Albumin/Globulin Ratio 1.1 Lipase 177 Procalcitonin 0.789 H TSH Urine Color Urine Appearance Urine pH Ur Specific [place] Urine Protein Urine Glucose (UA) Urine Ketones Urine Occult Blood Urine Nitrate Urine Bilirubin Urine Urobilinogen Ur Leukocyte Esterase Urine RBC Urine WBC Ur Squamous Epith Cells Amorphous Sediment Urine Bacteria Hyaline Casts Ur Culture Indicated? Vol Urine Centrifuged SARS-CoV-2 (PCR) Negative Influenza A (RT-PCR) Flu a negative Influenza B (RT-PCR) Flu b negative RSV (PCR) Negative 02/26/25 02/26/25 02/26/25 08:28 08:45 09:53 WBC RBC Hgb Hct MCV MCH MCHC RDW Plt Count Neut % (Auto) Lymph % (Auto) [place] % (Auto) Eos % (Auto) Baso % (Auto) Neut # (Auto) Lymph # (Auto) [place] # (Auto) Eos # (Auto) Baso # (Auto) RBC Morphology PT INR APTT VBG pH 7.17 L* VBG pCO2 26.8 L VBG pO2 57 H VBG HCO3 10 L VBG Total CO2 10 L VBG O2 Saturation 82 H VBG Base Excess -17.1 L FiO2 % 21 % Sodium Potassium Chloride Carbon Dioxide BUN Creatinine Estimated GFR BUN/Creatinine Ratio Glucose POC Whole Bld Glucose Lactate 3.1 H Calcium Magnesium Total Bilirubin AST ALT Alkaline Phosphatase Troponin I Total Protein Albumin Globulin Albumin/Globulin Ratio Lipase Procalcitonin TSH 10.1 H Urine Color Yellow Urine Appearance Sl cloudy Urine pH 5.5 Ur Specific [place] >=1.030 H Urine Protein 1+ H Urine Glucose (UA) Negative Urine Ketones Trace H Urine Occult Blood Negative Urine Nitrate Negative Urine Bilirubin Negative Urine Urobilinogen 1.0 Ur Leukocyte Esterase Negative Urine RBC 0-1/hpf Urine WBC 0-1/hpf Ur Squamous Epith Cells 1-5 /hpf Amorphous Sediment 2+ Urine Bacteria Occasional (0-1) Hyaline Casts 5-10/lpf Ur Culture Indicated? Cult not indicated Vol Urine Centrifuged 10ml (spun) SARS-CoV-2 (PCR) Influenza A (RT-PCR) Influenza B (RT-PCR) RSV (PCR) 02/26/25 10:25 WBC RBC Hgb Hct MCV MCH MCHC RDW Plt Count Neut % (Auto) Lymph % (Auto) [place] % (Auto) Eos % (Auto) Baso % (Auto) Neut # (Auto) Lymph # (Auto) [place] # (Auto) Eos # (Auto) Baso # (Auto) RBC Morphology PT INR APTT VBG pH VBG pCO2 VBG pO2 VBG HCO3 VBG Total CO2 VBG O2 Saturation VBG Base Excess FiO2 % Sodium Potassium Chloride Carbon Dioxide BUN Creatinine Estimated GFR BUN/Creatinine Ratio Glucose POC Whole Bld Glucose Lactate Calcium Magnesium Total Bilirubin AST ALT Alkaline Phosphatase Troponin I 0.049 H Total Protein Albumin Globulin Albumin/Globulin Ratio Lipase Procalcitonin TSH Urine Color Urine Appearance Urine pH Ur Specific [place] Urine Protein Urine Glucose (UA) Urine Ketones Urine Occult Blood Urine Nitrate Urine Bilirubin Urine Urobilinogen Ur Leukocyte Esterase Urine RBC Urine WBC Ur Squamous Epith Cells Amorphous Sediment Urine Bacteria Hyaline Casts Ur Culture Indicated? Vol Urine Centrifuged SARS-CoV-2 (PCR) Influenza A (RT-PCR) Influenza B (RT-PCR) RSV (PCR) Assessment & Plan Time-Based Coding :: [TOTAL MINUTES] spent with patient and on the chart (including review of chart, obtaining history, exam, reviewing outside data, placing orders, documenting exam and treatment plan, and counseling patient) on [DATE]. Quality VTE Deep Vein Thrombosis/Pulmonary Embolism Present on Admission: No
--- NOTE | 2025-02-26 13:38 | PC.ADMIT ---
[email or web address] Admission Note: PATIENT ARRIVED TO UNIT AT 1220. AFIB RVR 130-160S WITH NO C/O CHEST PAIN OR DIZZINESS. BP 113/63. NOT ON LEVO GTT AT THIS TIME. L AC AND R FA IV S/L. 100% ON ROOM AIR WITH NO C/O SOB O S/S OF RESPI DISTRESS NOTED. SEE DOCUMENTED VITALS. PATIENT STATES HE HAS NOT HAD ANY DIARRHEA, NAUSEA, OR VOMITING SINCE ARRIVAL TO HOSPITAL. NO NOTED HIVES/ RASH. MINIMAL SWELLING TO TOP LIP PER PT. MD MADE AWARE OF PT ARRIVAL AND AFIB RVR. [address] DR DOWNEY AT BEDSIDE. AWARE OF AFIB RVR. KATTY HELD FOR MAP >65. PER MD, PLAN TO TREAT SEPSIS WITH ATBX AND CONTINUE TO MONITOR HEART RATE. OK FOR CLD. CARE ONGOING. The patient,Wicho Blackburn,69 y/o, was given written information regarding hospital policies, unit procedures and contact persons. Patient's smoking status: Never smoker. Vital Signs - 8 hr 02/26/25 07:31 02/26/25 07:32 02/26/25 07:32 Temperature Pulse Rate 151 H 134 H Respiratory Rate 23 Blood Pressure 78/40 L Pulse Oximetry Oxygen Delivery Method 02/26/25 07:35 02/26/25 07:37 02/26/25 07:37 Temperature Pulse Rate 140 H 135 H Respiratory Rate 26 H 24 Blood Pressure 75/44 L Pulse Oximetry 92 Oxygen Delivery Method Room Air 02/26/25 07:40 02/26/25 07:41 02/26/25 07:41 Temperature Pulse Rate 126 H 127 H Respiratory Rate 25 H 25 H Blood Pressure 64/44 L Pulse Oximetry 94 Oxygen Delivery Method 02/26/25 07:43 02/26/25 07:43 02/26/25 07:45 Temperature Pulse Rate 119 H Respiratory Rate 23 Blood Pressure 70/41 L 78/35 L Pulse Oximetry Oxygen Delivery Method 02/26/25 07:45 02/26/25 07:45 02/26/25 07:50 Temperature Pulse Rate 122 H Respiratory Rate 25 H Blood Pressure 78/35 L 76/32 L Pulse Oximetry Oxygen Delivery Method 02/26/25 07:50 02/26/25 07:50 02/26/25 07:55 Temperature 94.6 F L Pulse Rate 125 H 117 H Respiratory Rate 24 22 Blood Pressure 76/32 L Pulse Oximetry 98 98 Oxygen Delivery Method 02/26/25 07:58 02/26/25 07:58 02/26/25 08:00 Temperature 95.2 F L Pulse Rate 113 H Respiratory Rate 22 Blood Pressure 78/48 L 80/37 L Pulse Oximetry 97 Oxygen Delivery Method 02/26/25 08:00 02/26/25 08:05 02/26/25 08:05 Temperature 95.2 F L 95.2 F L Pulse Rate 110 H 108 H Respiratory Rate 24 23 Blood Pressure 81/43 L Pulse Oximetry 97 97 Oxygen Delivery Method 02/26/25 08:06 02/26/25 08:10 02/26/25 08:10 Temperature 96.2 F L 94.8 F L Pulse Rate 115 H 113 H Respiratory Rate 26 H 23 Blood Pressure 67/38 L 88/54 L Pulse Oximetry 94 97 Oxygen Delivery Method Room Air 02/26/25 08:15 02/26/25 08:15 02/26/25 08:20 Temperature 94.6 F L 94.5 F L Pulse Rate 117 H 110 H Respiratory Rate 26 H 25 H Blood Pressure 81/52 L Pulse Oximetry 96 95 Oxygen Delivery Method 02/26/25 08:21 02/26/25 08:21 02/26/25 08:25 Temperature 94.5 F L 94.3 F L Pulse Rate 108 H 111 H Respiratory Rate 25 H 23 Blood Pressure 117/58 L Pulse Oximetry 95 96 Oxygen Delivery Method 02/26/25 08:25 02/26/25 08:30 02/26/25 08:33 Temperature 94.1 F L Pulse Rate 117 H Respiratory Rate 19 Blood Pressure 124/65 134/90 Pulse Oximetry 97 Oxygen Delivery Method 02/26/25 08:33 02/26/25 08:43 02/26/25 08:44 Temperature 94.1 F L 94.1 F L Pulse Rate 111 H 138 H Respiratory Rate 25 H Blood Pressure 133/59 L Pulse Oximetry 97 Oxygen Delivery Method 02/26/25 08:44 02/26/25 08:45 02/26/25 08:46 Temperature 94.1 F L 94.3 F L Pulse Rate 115 H 116 H Respiratory Rate 22 23 Blood Pressure 100/62 Pulse Oximetry 98 98 Oxygen Delivery Method 02/26/25 08:46 02/26/25 08:50 02/26/25 08:52 Temperature 94.3 F L 94.3 F L Pulse Rate 117 H 115 H Respiratory Rate 23 23 Blood Pressure 129/58 L Pulse Oximetry 98 97 Oxygen Delivery Method 02/26/25 08:52 02/26/25 08:55 02/26/25 08:55 Temperature 94.3 F L 94.5 F L Pulse Rate 114 H 109 H Respiratory Rate 21 21 Blood Pressure 98/52 L Pulse Oximetry 97 96 Oxygen Delivery Method 02/26/25 09:00 02/26/25 09:00 02/26/25 09:05 Temperature 94.6 F L 94.6 F L Pulse Rate 110 H 114 H Respiratory Rate 20 21 Blood Pressure 93/44 L Pulse Oximetry 96 97 Oxygen Delivery Method 02/26/25 09:05 02/26/25 09:10 02/26/25 09:10 Temperature 94.8 F L Pulse Rate 95 H Respiratory Rate 20 Blood Pressure 84/43 L 83/50 L Pulse Oximetry 96 Oxygen Delivery Method 02/26/25 09:15 02/26/25 09:15 02/26/25 09:20 Temperature 95.0 F L Pulse Rate 102 H Respiratory Rate 16 Blood Pressure 88/50 L 96/55 L Pulse Oximetry 97 Oxygen Delivery Method 02/26/25 09:20 02/26/25 09:25 02/26/25 09:25 Temperature 95.0 F L 95.0 F L Pulse Rate 94 H 99 H Respiratory Rate 19 19 Blood Pressure 106/62 Pulse Oximetry 97 97 Oxygen Delivery Method 02/26/25 09:30 02/26/25 09:31 02/26/25 09:31 Temperature 95.2 F L 95.2 F L Pulse Rate 93 H 98 H Respiratory Rate 19 17 Blood Pressure 108/59 L Pulse Oximetry 97 97 Oxygen Delivery Method 02/26/25 09:35 02/26/25 09:35 02/26/25 09:40 Temperature 95.4 F L 95.5 F L Pulse Rate 95 H 97 H Respiratory Rate 18 20 Blood Pressure 103/72 Pulse Oximetry 98 97 Oxygen Delivery Method 02/26/25 09:40 02/26/25 09:45 02/26/25 09:45 Temperature 95.7 F L Pulse Rate 102 H Respiratory Rate 18 Blood Pressure 99/56 L 108/68 Pulse Oximetry 98 Oxygen Delivery Method 02/26/25 09:50 02/26/25 09:51 02/26/25 09:51 Temperature 95.9 F L 95.9 F L Pulse Rate 95 H 96 H Respiratory Rate 20 20 Blood Pressure 105/50 L Pulse Oximetry 98 98 Oxygen Delivery Method 02/26/25 09:55 02/26/25 09:55 02/26/25 10:00 Temperature 96.1 F L 96.3 F L Pulse Rate 99 H 102 H Respiratory Rate 19 21 Blood Pressure 99/62 Pulse Oximetry 99 99 Oxygen Delivery Method 02/26/25 10:00 02/26/25 10:05 02/26/25 10:05 Temperature 96.3 F L Pulse Rate 96 H Respiratory Rate 18 Blood Pressure 98/73 103/67 Pulse Oximetry 100 Oxygen Delivery Method 02/26/25 10:10 02/26/25 10:10 02/26/25 10:14 Temperature 96.4 F L 96.6 F L Pulse Rate 92 H 97 H Respiratory Rate 19 20 Blood Pressure 100/65 Pulse Oximetry 99 100 Oxygen Delivery Method 02/26/25 10:14 02/26/25 10:15 02/26/25 10:15 Temperature 96.6 F L Pulse Rate 99 H Respiratory Rate 19 Blood Pressure 106/71 113/75 Pulse Oximetry 100 Oxygen Delivery Method 02/26/25 10:20 02/26/25 10:21 02/26/25 10:21 Temperature 96.8 F L 97.0 F L Pulse Rate 100 H 103 H Respiratory Rate 21 17 Blood Pressure 117/76 Pulse Oximetry 100 100 Oxygen Delivery Method 02/26/25 10:25 02/26/25 10:25 02/26/25 10:30 Temperature 97.0 F L 97.2 F L Pulse Rate 98 H 101 H Respiratory Rate 20 19 Blood Pressure 117/67 Pulse Oximetry 100 100 Oxygen Delivery Method 02/26/25 10:30 02/26/25 10:35 02/26/25 10:36 Temperature 97.3 F L 97.3 F L Pulse Rate 107 H 106 H Respiratory Rate 18 19 Blood Pressure 110/69 Pulse Oximetry 100 100 Oxygen Delivery Method 02/26/25 10:36 02/26/25 10:40 02/26/25 10:40 Temperature 97.5 F L Pulse Rate 107 H Respiratory Rate 18 Blood Pressure 120/55 L 121/58 L Pulse Oximetry 100 Oxygen Delivery Method 02/26/25 10:45 02/26/25 10:45 02/26/25 10:50 Temperature 97.7 F 97.7 F Pulse Rate 118 H 119 H Respiratory Rate 17 21 Blood Pressure 122/64 Pulse Oximetry 100 100 Oxygen Delivery Method 02/26/25 10:50 02/26/25 10:55 02/26/25 10:55 Temperature 97.9 F Pulse Rate 129 H Respiratory Rate 25 H Blood Pressure 94/51 L 104/64 Pulse Oximetry 97 Oxygen Delivery Method 02/26/25 11:00 02/26/25 11:00 02/26/25 11:05 Temperature 98.1 F Pulse Rate 130 H Respiratory Rate 20 Blood Pressure 90/52 L 85/57 L Pulse Oximetry 93 Oxygen Delivery Method 02/26/25 11:05 02/26/25 11:10 02/26/25 11:11 Temperature 98.2 F 98.4 F 98.4 F Pulse Rate 127 H 115 H 119 H Respiratory Rate 19 19 20 Blood Pressure Pulse Oximetry 97 100 100 Oxygen Delivery Method 02/26/25 11:11 02/26/25 11:15 02/26/25 11:15 Temperature 98.4 F Pulse Rate 118 H Respiratory Rate 22 Blood Pressure 113/68 112/67 Pulse Oximetry 100 Oxygen Delivery Method 02/26/25 11:20 02/26/25 11:20 02/26/25 11:25 Temperature 98.6 F 98.6 F Pulse Rate 123 H 117 H Respiratory Rate 22 22 Blood Pressure 112/63 Pulse Oximetry 100 100 Oxygen Delivery Method 02/26/25 11:25 02/26/25 11:30 02/26/25 11:30 Temperature 98.6 F Pulse Rate 124 H Respiratory Rate 23 Blood Pressure 120/64 135/60 Pulse Oximetry 95 Oxygen Delivery Method 02/26/25 11:35 02/26/25 11:35 02/26/25 11:40 Temperature 98.8 F 98.8 F Pulse Rate 121 H 121 H Respiratory Rate 24 21 Blood Pressure 133/61 Pulse Oximetry 99 97 Oxygen Delivery Method 02/26/25 11:40 02/26/25 11:45 02/26/25 11:45 Temperature 98.8 F Pulse Rate 124 H Respiratory Rate 22 Blood Pressure 139/66 126/83 Pulse Oximetry 100 Oxygen Delivery Method 02/26/25 11:50 02/26/25 11:51 02/26/25 11:51 Temperature 99.0 F 99.0 F Pulse Rate 124 H 129 H Respiratory Rate 24 24 Blood Pressure 141/63 H Pulse Oximetry 100 100 Oxygen Delivery Method 02/26/25 11:55 02/26/25 11:56 02/26/25 11:56 Temperature 99.0 F 99.0 F Pulse Rate 126 H 125 H Respiratory Rate 26 H 22 Blood Pressure 144/71 H Pulse Oximetry 100 96 Oxygen Delivery Method 02/26/25 12:00 02/26/25 12:01 02/26/25 12:01 Temperature 99.1 F 99.1 F Pulse Rate 139 H 143 H Respiratory Rate 24 23 Blood Pressure 103/63 Pulse Oximetry 100 99 Oxygen Delivery Method 02/26/25 12:05 02/26/25 12:05 02/26/25 12:10 Temperature 99.1 F 99.1 F Pulse Rate 148 H 131 H Respiratory Rate 21 19 Blood Pressure 110/66 Pulse Oximetry 91 100 Oxygen Delivery Method 02/26/25 12:10 02/26/25 12:30 02/26/25 12:31 Temperature 97.7 F Pulse Rate 144 H Respiratory Rate 23 Blood Pressure 115/74 113/63 Pulse Oximetry 100 Oxygen Delivery Method Room Air 02/26/25 12:31 02/26/25 12:35 02/26/25 12:40 Temperature 97.7 F Pulse Rate 151 H 133 H 145 H Respiratory Rate 15 22 23 Blood Pressure 113/63 Pulse Oximetry 98 100 99 Oxygen Delivery Method 02/26/25 12:41 02/26/25 12:41 02/26/25 12:45 Temperature Pulse Rate 135 H 143 H Respiratory Rate 22 24 Blood Pressure 104/58 L Pulse Oximetry 99 100 Oxygen Delivery Method 02/26/25 12:50 02/26/25 12:55 02/26/25 13:00 Temperature Pulse Rate 139 H 135 H Respiratory Rate 25 H 25 H Blood Pressure 94/72 Pulse Oximetry 92 95 Oxygen Delivery Method 02/26/25 13:00 02/26/25 13:05 02/26/25 13:15 Temperature Pulse Rate 142 H 140 H 130 H Respiratory Rate 24 23 19 Blood Pressure Pulse Oximetry 92 96 100 Oxygen Delivery Method 02/26/25 13:30 02/26/25 13:30 Temperature Pulse Rate 129 H Respiratory Rate 16 Blood Pressure 109/59 L Pulse Oximetry 100 Oxygen Delivery Method
[2025-02-26] MEDS: metroNIDAZOLE 500 MG/100 ML PIGGYBACK 100 MG IV ×2 (14:10→20:19)
[2025-02-26] MEDS: methylPREDNISolone succ 125 MG/2 ML VIAL IV (14:10)
[2025-02-26 14:36] LABS: Lactate (Lactic Acid) 1.9 mmol/L (0.7-2.1)
[2025-02-27] VITALS (108 sets, daily range): BP systolic 80–117; BP diastolic 50–61; PULSE 71–93; RESP 13–34; TEMP 36.3–36.9; O2SAT 89–100
[2025-02-27] MEDS: metroNIDAZOLE 500 MG/100 ML PIGGYBACK 100 MG IV ×4 (02:27→20:03)
[2025-02-27 08:09] LABS: CRP, High Sensitivity 38.66 mg/L (0.00-3.00)
[2025-02-27] MEDS: methylPREDNISolone succ 125 MG/2 ML VIAL 60 MG IV (09:17)
[2025-02-27 09:40] LABS: Add Manual Diff / Slide Review NO; Hematocrit 42.6 % (41-53); Hemoglobin 14.1 g/dL (13.5-17.5); Lymphocytes Absolute Auto 1300 /uL (1100-4500); Mean Corpuscular HGB Conc 33.1 % (30-36); Mean Corpuscular Hemoglobin 29.3 PG (26-34); Mean Corpuscular Volume 88.6 fL (80-100); Platelet Count 269 X10^3/uL (150-400)
[2025-02-27 10:03] LABS: Alanine Aminotransferase 63 IU/L (<50); Albumin 3.0 g/dL (3.5-5.0); Albumin Globulin Ratio 1.1 (1.0-2.8); Alkaline Phosphatase 70 U/L (38-126); Blood Urea Nitrogen 35 mg/dL (9-20); Calcium 8.4 mg/dL (8.4-10.2); Carbon Dioxide 16 mmol/L (22-32); Chloride 109 mmol/L (98-107); Estimated Glomerular Filt Rate 48 mL/min (>60); Globulin 2.8 g/dL (1.7-4.1); Glucose 123 mg/dL (70-99); HEMOLYSIS < 15 (0-50); Potassium 4.6 mmol/L (3.4-5.1); Sodium 134 mmol/L (137-145); Total Protein 5.8 g/dL (6.3-8.2)
[2025-02-27 11:06] LABS: Clostridium difficile toxin AB Not Detected (Not Detect); Enteroaggregative E.coli Not Detected (Not Detect); Enteropathogenic E.coli Not Detected (Not Detect); Enterotoxigenic E.coli It/st Not Detected (Not Detect); Plesiomonsa shigelloides Not Detected (Not Detect); Shiga-like toxin-prod E.coli Not Detected (Not Detect)
--- NOTE | 2025-02-27 13:24 | P.PN_ITS ---
Subjective Subjective Date Patient Seen: 02/27/25 Interval history: Chief complaint: Eight months of cramping and diarrhea with colitis with bloody diarrhea septic shock and lactic acidosis suspicious for inflammatory bowel disease History of present illness: 02/26: 69-year-old at 8 months on and off of diarrhea has been experimenting with lot of changes in diet but this has not had any notable pattern or effect approximately 2 weeks prior to admission is diarrhea and intolerance to food has worsened came to the emergency department for evaluation Findings in the emergency department significant for: White count 9.6 with 85% neutrophils, venous blood gas with metabolic acidosis pH 7.17 pCO2 27 PO2 57 metabolic showing a CO2 of 8 sodium 134 potassium 5.1 procalcitonin of 0.[address] abdomen and pelvis: 1. Multiple segments of small bowel wall thickening with air-fluid levels concerning for enteritis. 2. Given the intermittent nature of bowel wall thickening cannot and exclude chronic inflammatory disease, clinical correlation is recommended. 3. Several loops of prominent fluid-filled bowel likely representing ileus without discrete obstruction Review of systems: No acute weight loss weight gain fatigue or fevers or chills Chest pain palpitations shortness for breath No significant abdominal pain No urinary symptoms No paresthesia paresis Vital signs: Temperature 97.7?, pulse 140 irregular, respirations initially 25 de-escalated to 16 after fluid resuscitation, blood pressure initially 94/72 improved to 1 0 9/59 after fluid resuscitation Physical exam: Slim elderly white male actually appearing quite fit HEENT unremarkable Heart irregularly irregular rhythm Oddly, abdomen is scaphoid and nontender bowel sounds present Extremities no edema For objective laboratory and imaging please see the bottom of the note Acute colitis with septic shock suspicious for inflammatory bowel disease: * Aggressive fluid resuscitation * Methylprednisolone 60 mg a day * GI film panel * IV Zosyn for colitis ([facility] 2019) * IV Flagyl to cover for C diff until GI film panel completed ([facility] 2019) (discontinued) * Avoid colonoscopy initially due to risk of perforation * Daily CRP * Surgical intervention if signs of toxic megacolon appear * Transfer to tertiary center for biologic rescue therapies if the above first- line not effective New onset atrial fibrillation rapid ventricular response chads Vasc score equals 1 * No previous history * Chads Vasc 2 score equals 1 no anticoagulation * Favor cardiotoxicity secondary to sepsis * Anticoagulated contraindicated due to GI bleeding * echo pending DVT prophylaxis: * SCDs only Code status: * Full code blue Disposition: * Inpatient ICU deescalted to med Time based billing: * 35 minutes were mount evaluation of this patient including [id number] evaluation direct physical examination discussion with patient's discussion with emergency provider and ICU care team review of objective laboratory and imaging data including direct view of images myself Exam Vital Signs (past 8 hours): - 02/27/25 05:25 02/27/25 05:30 02/27/25 05:35 Temperature Pulse Rate 77 79 78 Respiratory Rate 17 20 15 Blood Pressure Pulse Oximetry 93 89 L Oxygen Delivery Method 02/27/25 05:40 02/27/25 05:45 02/27/25 05:50 Temperature Pulse Rate 76 74 79 Respiratory Rate 16 16 17 Blood Pressure Pulse Oximetry 92 96 96 Oxygen Delivery Method 02/27/25 05:55 02/27/25 06:00 02/27/25 06:00 Temperature Pulse Rate 78 77 Respiratory Rate 17 17 Blood Pressure 88/54 L Pulse Oximetry 96 96 Oxygen Delivery Method 02/27/25 06:05 02/27/25 06:10 02/27/25 06:15 Temperature Pulse Rate 77 76 76 Respiratory Rate 16 16 16 Blood Pressure Pulse Oximetry 96 96 96 Oxygen Delivery Method 02/27/25 06:20 02/27/25 06:25 02/27/25 06:30 Temperature Pulse Rate 77 75 78 Respiratory Rate 17 16 19 Blood Pressure Pulse Oximetry 97 96 96 Oxygen Delivery Method 02/27/25 06:35 02/27/25 06:40 02/27/25 06:45 Temperature Pulse Rate 82 75 73 Respiratory Rate 22 14 14 Blood Pressure Pulse Oximetry 96 95 96 Oxygen Delivery Method 02/27/25 06:50 02/27/25 06:55 02/27/25 07:00 Temperature 97.3 F L Pulse Rate 77 77 85 Respiratory Rate 15 14 17 Blood Pressure 98/61 Pulse Oximetry 95 98 95 Oxygen Delivery Method 02/27/25 07:00 02/27/25 07:00 02/27/25 07:05 Temperature Pulse Rate 75 78 Respiratory Rate 16 14 Blood Pressure 98/61 Pulse Oximetry 96 96 Oxygen Delivery Method 02/27/25 07:10 02/27/25 07:15 02/27/25 07:20 Temperature Pulse Rate 75 76 80 Respiratory Rate 14 15 14 Blood Pressure Pulse Oximetry 95 95 95 Oxygen Delivery Method 02/27/25 07:25 02/27/25 07:30 02/27/25 07:35 Temperature Pulse Rate 76 76 72 Respiratory Rate 16 14 13 Blood Pressure Pulse Oximetry 95 95 97 Oxygen Delivery Method 02/27/25 07:40 02/27/25 07:45 02/27/25 07:50 Temperature Pulse Rate 75 71 74 Respiratory Rate 15 14 15 Blood Pressure Pulse Oximetry 95 96 96 Oxygen Delivery Method 02/27/25 07:55 02/27/25 08:00 02/27/25 08:00 Temperature Pulse Rate 77 75 Respiratory Rate 18 14 Blood Pressure 102/57 L Pulse Oximetry 96 96 Oxygen Delivery Method 02/27/25 08:05 02/27/25 08:10 02/27/25 08:15 Temperature Pulse Rate 75 81 81 Respiratory Rate 15 27 H 21 Blood Pressure Pulse Oximetry 96 96 97 Oxygen Delivery Method 02/27/25 08:20 02/27/25 08:25 02/27/25 08:29 Temperature Pulse Rate 84 93 H Respiratory Rate 19 24 Blood Pressure Pulse Oximetry 97 96 Oxygen Delivery Method Room Air 02/27/25 08:30 02/27/25 08:35 02/27/25 08:40 Temperature Pulse Rate 81 87 87 Respiratory Rate 18 17 21 Blood Pressure Pulse Oximetry 98 98 96 Oxygen Delivery Method 02/27/25 08:45 02/27/25 11:20 Temperature 98.4 F Pulse Rate 82 71 Respiratory Rate 21 24 Blood Pressure 101/52 L Pulse Oximetry 97 98 Oxygen Delivery Method Oxygen Delivery Method Room Air Objective Labs 02/27/25 09:35 02/27/25 09:35 Labs: Laboratory Results - last 24 hr 02/26/25 02/26/25 02/27/25 09:18 14:10 09:18 WBC RBC Hgb Hct MCV MCH MCHC RDW Plt Count Neut % (Auto) Lymph % (Auto) Navarro % (Auto) Eos % (Auto) Baso % (Auto) Neut # (Auto) Lymph # (Auto) [place]arro # (Auto) Eos # (Auto) Baso # (Auto) ESR 1 Sodium Potassium Chloride Carbon Dioxide BUN Creatinine Estimated GFR BUN/Creatinine Ratio Glucose Lactate 1.9 Calcium Total Bilirubin AST ALT Alkaline Phosphatase C-React Prot High Sens 38.66 H Total Protein Albumin Globulin Albumin/Globulin Ratio Stl C. cayetanensis PCR Not detected Stool Rotavirus (PCR) Not detected Stool Adenovirus (PCR) Not detected Stool Astrovirus (PCR) Not detected Stool Cryptosporidium PCR Not detected Stl E.coli Shiga Tox PCR Not detected St Sh/Enteroin Ecoli PCR Not detected Stl Enterotoxigenic E PCR Not detected Stool EPEC (PCR) Not detected Stl E. histolytica PCR Not detected Stool Giardia Lamblia PCR Not detected Stool Sapovirus (PCR) Not detected Stl P. shigelloides PCR Not detected St Y.enterocolitica PCR Not detected Stool Vibrio (PCR) Not detected Stl Vibrio cholerae PCR Not detected Stl Enteroaggr Ecoli PCR Not detected Stl Norovirus GI/GII PCR Not detected Campylobacter (PCR) Not detected C. difficile Tox (PCR) Cancelled Not detected Salmonella (PCR) Not detected 02/27/25 09:35 WBC 15.9 H D RBC 4.81 Hgb 14.1 Hct 42.6 MCV 88.6 MCH 29.3 MCHC 33.1 RDW 13.9 Plt Count 269 Neut % (Auto) 85.7 H Lymph % (Auto) 8.1 L Navarro % (Auto) 4.4 Eos % (Auto) 1.6 L Baso % (Auto) 0.2 Neut # (Auto) 12525 H Lymph # (Auto) 1300 Navarro # (Auto) 700 Eos # (Auto) 300 Baso # (Auto) 0 ESR Sodium 134 L Potassium 4.6 Chloride 109 H Carbon Dioxide 16 L BUN 35 H Creatinine 1.55 H Estimated GFR 48 L BUN/Creatinine Ratio 22.6 H Glucose 123 H Lactate Calcium 8.4 Total Bilirubin 0.4 AST 31 ALT 63 H Alkaline Phosphatase 70 C-React Prot High Sens Total Protein 5.8 L Albumin 3.0 L Globulin 2.8 Albumin/Globulin Ratio 1.1 Stl C. cayetanensis PCR Stool Rotavirus (PCR) Stool Adenovirus (PCR) Stool Astrovirus (PCR) Stool Cryptosporidium PCR Stl E.coli Shiga Tox PCR St Sh/Enteroin Ecoli PCR Stl Enterotoxigenic E PCR Stool EPEC (PCR) Stl E. histolytica PCR Stool Giardia Lamblia PCR Stool Sapovirus (PCR) Stl P. shigelloides PCR St Y.enterocolitica PCR Stool Vibrio (PCR) Stl Vibrio cholerae PCR Stl Enteroaggr Ecoli PCR Stl Norovirus GI/GII PCR Campylobacter (PCR) C. difficile Tox (PCR) Salmonella (PCR) PFSH Social History household members: spouse Smoking Status: Never smoker alcohol intake: current Assessment & Plan Time-Based Coding :: [TOTAL MINUTES] spent with patient and on the chart (including review of chart, obtaining history, exam, reviewing outside data, placing orders, documenting exam and treatment plan, and counseling patient) on [DATE]. Quality VTE Deep Vein Thrombosis/Pulmonary Embolism Present on Admission: No
--- NOTE | 2025-02-27 13:29 | DI.ECHO.S_ITS ---
[facility] : : [address] : [place] : : [id number] : : Phone: [phone] Echocardiogram Report + + :Name: MANDO CHOI Study Date: 02/28/2025 Height: 73 in : :[facility] ReadingLocation: Weight: 169 lb : : Gender: Male BSA: 2.0 m2 : :: 1955 Age: 69 yrs BP: 100/61 mmHg: :Reason For Study: ATRIAL FIBRILLATION : :Ordering Physician: DAINA : :RA Performed By: Kami Suazo : :Referring: RA LAMA : + + Interpretation Summary 1) Normal left ventricular size with mildly reduced systolic function (EF about 45%). 2) Upper normal right ventricular size with mildly reduced function. 3) Severe biatrial enlargement. 4) No significant valvular abnormalities. 5) The right ventricular systolic pressure is estimated to be at least 36 mmHg based on an estimated right atrial pressure of 15 mm Hg. 6) There is a small left-sided pleural effusion. 7) No prior Echo available for comparison. Procedure: A two-dimensional transthoracic echocardiogram with color flow and Doppler was performed. The study quality was technically good. There is no prior echocardiogram noted for this patient. The patient was in atrial fibrillation with heart rates between 52-69 bpm during the exam. Left Ventricle: The left ventricle is normal in size and wall thickness. Left ventricular ejection fraction is estimated to be 45 +/- 5%. There is mild global hypokinesis of the left ventricle. Diastolic function could not be accurately assessed due to atrial fibrillation. Right Ventricle: The right ventricle is at the upper limits of normal in size. Right ventricular systolic function is mildly reduced. Atria: The left atrium is severely dilated. The right atrium is severely dilated. There is no Doppler evidence for an interatrial shunt. Mitral Valve: There is a flat closure plane of the the mitral valve leaflets. There is mild mitral regurgitation. Aortic Valve: The aortic valve is trileaflet. The aortic valve opens well. There is no aortic valve stenosis. There is trace aortic regurgitation. Tricuspid Valve: The tricuspid valve leaflets are thin and pliable. There is mild tricuspid regurgitation. The right ventricular systolic pressure is estimated to be at least 36 mmHg based on an estimated right atrial pressure of 15 mm Hg. Pulmonic Valve: The pulmonic valve leaflets are thin and pliable; valve motion is normal. There is mild pulmonic regurgitation. Great Vessels: The aortic root is normal size. The dimensions of the ascending aorta are normal. The IVC is dilated (diameter is greater than 2.1 cm) and it collapses less than 50% with a sniff. This suggests a high right atrial pressure of 15 mm Hg. Pericardium/ Pleura There is no pericardial effusion. There is a small left- sided pleural effusion. MMode/2D Measurements & Calculations LVIDd: 5.3 cm LVOT diam: 2.2 cm LVIDs: 4.3 cm Ao root diam: 3.7 cm FS: 19.8 % asc Aorta Diam: 3.4 cm EPSS: 0.34 cm Ao Arch Diam (Prox Trans): 3.3 cm IVSd: 0.64 cm LVPWd: 0.78 cm LV boyer. diameter/BSA (cm/m^2): 2.7 LV sys. diameter/BSA (cm/m^2): 2.1 LA A2 area: 32.2 cm2 RA long axis: 7.7 cm LA A4 area: 32.9 cm2 RA area: 34.5 cm2 LA length (vol): 7.1 cm RA vol: 130.8 ml LA vol: 126.5 ml RA : 65.3 ml/m2 LA vol index: 63.2 ml/m2 IVC diam: 2.4 cm RVD1 (basal): 4.2 cm RVD2 (mid): 3.5 cm TAPSE: 1.7 cm Doppler Measurements & Calculations Ao V2 max: 105.6 cm/sec LVOT Max Gómez: 78.2 cm/sec Ao V2 mean: 74.2 cm/sec LV V1 max P.4 mmHg Ao max P.5 mmHg LV V1 VTI: 15.8 cm Ao mean P.5 mmHg KOBE(I,D): 2.7 cm2 Ao V2 VTI: 22.4 cm KOBE(V,D): 2.8 cm2 sev ratio: 0.70 KOBE indexed to BSA (cm^2/m^2): 1.3 MV E max gómez: 54.6 cm/sec TR max gómez: 228.6 cm/sec Med Peak E' Gómez: 11.7 cm/sec TR max P.9 mmHg E/E' med: 4.7 PA V2 max: 58.2 cm/sec Lat Peak E' Gómez: 15.1 cm/sec PA V2 mean: 42.1 cm/sec E/E' lat: 3.6 PA mean P.81 mmHg E/e' average: 4.1 PA pr(Accel): 22.5 mmHg MV dec time: 0.21 sec SV(LVOT): 59.8 ml Reading Physician:09:26 AM
--- NOTE | 2025-02-27 14:52 | CM.DANOTE ---
Patient is a 69 yo male who was admitted INPT Status on 02/26/25 for Acute Colitis/AFIB. Pt has [employer] for insurance and his PCP is not listed. EMR was reviewed. Per MD, pt with likely inflammatory disease and possible Crohns and admitted for tx of AFIB and to have Echo and CDiff was ruled out. Pending progress, anticipates possible d/c home tomorrow with outpt GI f/u. Per RN, pt independent in room and cooperative and currently has multiple family members visiting bedside. Pt lives in [place] with his and is independent and active at baseline. No prior hx of admission at [facility]. Plan: SW to follow bedside tomorrow with pt to confirm safe discharge plan to home and any further identified discharge planning needs. SOPHIA Fritz Discharge Planning/Care Management CM Discharge Assessment Start: 02/26/25 11:42 Freq: Status: Active Protocol: Document 02/27/25 14:12 BF (Rec: 02/27/25 14:52 BF [id number]) Discharge Planning Assessment Assigned Discharge SOPHIA Elena [employer] Assistant Insurance [employer] DPOA/Assigned informally spouse Sharon Designsandy Name Contact Information [phone] Advance Directives? No Advance Directives No on File History Provided By Patient,Significant Other,Medical Record Has Patient been No admitted in last 30 days? Prior Living House Arrangements Household Members spouse Type of Drives own vehicle transporation used prior to admit Independent with ADL Yes 's Is patient alert and Yes oriented? Caregiver for No Another Barriers to No Discharge Discharge Plan Home Transportation Family Arrangement Referrals Initiated None needed Additional Comment Pending progress Review Status In Process Please Provide Date 02/27/25 Initial DC Assessment Was Performed Next Review Type Continued Stay Review
--- NOTE | 2025-02-27 16:32 | PC.NURSE ---
Day shift: Pt A&Ox4, tolerating clear liquids. Able to ambulate to BR SBA, O2 96% on RA. Provider advanced diet, able to tolerate low residual/low fiber diet. BP low but stable with MAPS >65. Denies pain, SOB. Able to reposition independently and calls appropriately. Care ongoing.
[2025-02-28] MEDS: metroNIDAZOLE 500 MG/100 ML PIGGYBACK 100 MG IV (03:56)
[2025-02-28 04:00] VITALS: BP 100/61; PULSE 73; RESP 16; TEMP 37; O2SAT 98
--- NOTE | 2025-02-28 06:32 | PC.NURSE ---
pt A&O x4 cooperative with care, up to bathroom for loose BMs with SBY assist, denies pain or SOB, O2 sats >90% on RA, afib 60-80s, BPs 100/60s, call suarez within reach, care ongoing
[2025-02-28 07:11] LABS: Add Manual Diff / Slide Review NO; Hematocrit 42.3 % (41-53); Hemoglobin 14.1 g/dL (13.5-17.5); Lymphocytes Absolute Auto 1400 /uL (1100-4500); Mean Corpuscular HGB Conc 33.3 % (30-36); Mean Corpuscular Hemoglobin 29.4 PG (26-34); Mean Corpuscular Volume 88.5 fL (80-100); Platelet Count 267 X10^3/uL (150-400)
[2025-02-28 07:24] LABS: Alanine Aminotransferase 66 IU/L (<50); Albumin 3.5 g/dL (3.5-5.0); Albumin Globulin Ratio 1.1 (1.0-2.8); Alkaline Phosphatase 80 U/L (38-126); Blood Urea Nitrogen 29 mg/dL (9-20); Calcium 8.8 mg/dL (8.4-10.2); Carbon Dioxide 22 mmol/L (22-32); Chloride 110 mmol/L (98-107); Estimated Glomerular Filt Rate > 60 mL/min (>60); Globulin 3.1 g/dL (1.7-4.1); Glucose 100 mg/dL (70-99); HEMOLYSIS < 15 (0-50); Potassium 4.5 mmol/L (3.4-5.1); Sodium 139 mmol/L (137-145); Total Protein 6.6 g/dL (6.3-8.2)
[2025-02-28 08:00] VITALS: BP 99/63; PULSE 55; RESP 16; O2SAT 98
--- NOTE | 2025-02-28 08:03 | P.DS_ITS ---
History of Present Illness History of Present Illness Date Patient Seen: 02/28/25 Chief complaint: Diarrhea x3days Narrative: Chief complaint: Eight months of cramping and diarrhea with colitis with bloody diarrhea septic shock and lactic acidosis suspicious for inflammatory bowel disease History of present illness: 02/26: 69-year-old at 8 months on and off of diarrhea has been experimenting with lot of changes in diet but this has not had any notable pattern or effect approximately 2 weeks prior to admission is diarrhea and intolerance to food has worsened came to the emergency department for evaluation Findings in the emergency department significant for: White count 9.6 with 85% neutrophils, venous blood gas with metabolic acidosis pH 7.17 pCO2 27 PO2 57 metabolic showing a CO2 of 8 sodium 134 potassium 5.1 procalcitonin of 0.[address] abdomen and pelvis: 1. Multiple segments of small bowel wall thickening with air-fluid levels concerning for enteritis. 2. Given the intermittent nature of bowel wall thickening cannot and exclude chronic inflammatory disease, clinical correlation is recommended. 3. Several loops of prominent fluid-filled bowel likely representing ileus without discrete obstruction Hospital course: 02/27-02/28: Patient improved dramatically and very quickly throughout hospitalization diarrhea improved is having just some loose stool at this point there was no more rectal bleeding there was no abdominal pain advance diet to regular diet patient was discharged in stable condition on oral prednisone and oral metronidazole and to follow up with [facility] for Gastroenterology and diagnostic sigmoidoscopy. Echocardiogram: 1) Normal left ventricular size with mildly reduced systolic function (EF about 45%). 2) Upper normal right ventricular size with mildly reduced function. 3) Severe biatrial enlargement. 4) No significant valvular abnormalities. 5) The right ventricular systolic pressure is estimated to be at least 36 mmHg based on an estimated right atrial pressure of 15 mm Hg. 6) There is a small left-sided pleural effusion. 7) No prior Echo available for comparison. Review of systems: No acute weight loss weight gain fatigue or fevers or chills Chest pain palpitations shortness for breath No significant abdominal pain No urinary symptoms No paresthesia paresis Physical exam: Slim elderly white male actually appearing quite fit HEENT unremarkable Heart irregularly irregular rhythm Oddly, abdomen is scaphoid and nontender bowel sounds present Extremities no edema Assessment and plan: Acute colitis with septic shock suspicious for inflammatory bowel disease: * Resolved New onset atrial fibrillation rapid ventricular response * Rate controlled * Chads Vasc score equals 1 (no anticoagulation) * Echocardiogram Preliminary evaluation severe biatrial enlargement somewhat reduced ejection fraction 45% DVT prophylaxis: * SCDs only Code status: * Full code blue Disposition: * Discharge to home today Time based billing: * 35 minutes were mount evaluation of this patient including [id number] evaluation direct physical examination discussion with patient's discussion with emergency provider and ICU care team review of objective laboratory and imaging data including direct view of images myself Discharge Providers Provider Date of admission: 02/26/25 11:33 Discharge Date: 02/28/25 Discharge provider: Valente Dow MD Exam Vital Signs (past 8 hours): - 02/28/25 00:35 02/28/25 04:00 Temperature 98.6 F Pulse Rate 73 Respiratory Rate 16 Blood Pressure 100/61 Pulse Oximetry 98 Oxygen Delivery Method Room Air Oxygen Flow Rate 0 Oxygen Delivery Method Room Air Oxygen Flow Rate 0 Objective Labs 02/28/25 06:50 02/28/25 06:50 Labs: Laboratory Results - last 24 hr 02/26/25 02/26/25 02/27/25 09:18 14:10 09:18 WBC RBC Hgb Hct MCV MCH MCHC RDW Plt Count Neut % (Auto) Lymph % (Auto) [place] % (Auto) Eos % (Auto) Baso % (Auto) Neut # (Auto) Lymph # (Auto) [place] # (Auto) Eos # (Auto) Baso # (Auto) Sodium Potassium Chloride Carbon Dioxide BUN Creatinine Estimated GFR BUN/Creatinine Ratio Glucose Calcium Total Bilirubin AST ALT Alkaline Phosphatase C-React Prot High Sens 38.66 H Total Protein Albumin Globulin Albumin/Globulin Ratio Stl C. cayetanensis PCR Not detected Stool Rotavirus (PCR) Not detected Stool Adenovirus (PCR) Not detected Stool Astrovirus (PCR) Not detected Stool Cryptosporidium PCR Not detected Stl E.coli Shiga Tox PCR Not detected St Sh/Enteroin Ecoli PCR Not detected Stl Enterotoxigenic E PCR Not detected Stool EPEC (PCR) Not detected Stl E. histolytica PCR Not detected Stool Giardia Lamblia PCR Not detected Stool Sapovirus (PCR) Not detected Stl P. shigelloides PCR Not detected St Y.enterocolitica PCR Not detected Stool Vibrio (PCR) Not detected Stl Vibrio cholerae PCR Not detected Stl Enteroaggr Ecoli PCR Not detected Stl Norovirus GI/GII PCR Not detected Campylobacter (PCR) Not detected C. difficile Tox (PCR) Cancelled Not detected Salmonella (PCR) Not detected 02/27/25 02/28/25 09:35 06:50 WBC 15.9 H D 14.5 H RBC 4.81 4.79 Hgb 14.1 14.1 Hct 42.6 42.3 MCV 88.6 88.5 MCH 29.3 29.4 MCHC 33.1 33.3 RDW 13.9 14.1 Plt Count 269 267 Neut % (Auto) 85.7 H 81.7 H Lymph % (Auto) 8.1 L 9.5 L [place] % (Auto) 4.4 6.0 Eos % (Auto) 1.6 L 2.5 Baso % (Auto) 0.2 0.3 Neut # (Auto) 82241 H 53502 H Lymph # (Auto) 1300 1400 [place] # (Auto) 700 900 Eos # (Auto) 300 400 Baso # (Auto) 0 0 Sodium 134 L 139 Potassium 4.6 4.5 Chloride 109 H 110 H Carbon Dioxide 16 L 22 BUN 35 H 29 H Creatinine 1.55 H 1.27 H Estimated GFR 48 L > 60 BUN/Creatinine Ratio 22.6 H 22.8 H Glucose 123 H 100 H Calcium 8.4 8.8 Total Bilirubin 0.4 0.4 AST 31 38 ALT 63 H 66 H Alkaline Phosphatase 70 80 C-React Prot High Sens Total Protein 5.8 L 6.6 Albumin 3.0 L 3.5 Globulin 2.8 3.1 Albumin/Globulin Ratio 1.1 1.1 Stl C. cayetanensis PCR Stool Rotavirus (PCR) Stool Adenovirus (PCR) Stool Astrovirus (PCR) Stool Cryptosporidium PCR Stl E.coli Shiga Tox PCR St Sh/Enteroin Ecoli PCR Stl Enterotoxigenic E PCR Stool EPEC (PCR) Stl E. histolytica PCR Stool Giardia Lamblia PCR Stool Sapovirus (PCR) Stl P. shigelloides PCR St Y.enterocolitica PCR Stool Vibrio (PCR) Stl Vibrio cholerae PCR Stl Enteroaggr Ecoli PCR Stl Norovirus GI/GII PCR Campylobacter (PCR) C. difficile Tox (PCR) Salmonella (PCR) PFSH Social History household members: spouse Smoking Status: Never smoker alcohol intake: current Discharge Plan Discharge Plan Patient Disposition: Home Discharge orders & Medications Prescriptions: New prednisone 20 mg tablet 20 mg PO DAILY Qty: 30 0RF metronidazole 250 mg tablet 250 mg PO TID Qty: 20 0RF Follow up/Referrals: [facility] [Provider Group] - 1 Week Referral Note: Probable inflammatory bowel disease Sonu Barriga MD [Non-Staff] Diet/Activity/Treatments Diet comment: Low fiber until follow up with GI specialist Visit Report/Discharge Packet Instructions: DI for Colitis Stand Alone Forms: Patient Portal/API, Stroke Signs & Symptoms Quality VTE Deep Vein Thrombosis/Pulmonary Embolism Present on Admission: No
--- NOTE | 2025-02-28 11:26 | PC.NURSE ---
Provided discharge education to pt on diet, follow up, medications; no pharmacy listed with prescriptions. Escalated to MD Dow who entered pharmacy info. Pt and spouse stated all questions answered. All belongings with pt. No belongings in drawer, safe, or pharm. Pt escorted ambulatory with by AHSAN Mac.
--- NOTE | 2025-02-28 11:44 | CM.DPC ---
DCP Discharge Home Per MD, pt's Echo normal and pt medically stable to discharge home today and no identified barriers to discharge and orders placed. Per RN, dc instructions provided and no concerns noted and spouse can provide transport home today. SOPHIA Fritz
[2025-03-01 16:08] LABS: CMV DNA, Quant Real Time PCR Negative (Negative)
[2025-03-04 12:36] LABS: Calprotectin, Stool 497 ug/g (0-120)
== END 2025-02-28 11:30 | disposition home or self-care (01) | DRG 871 ==
LOC: ED 07:32 → AC 11:34 → ICU 11:56
PROVIDERS: Admitting Provider Internal Medicine; Emergency Provider Family Medicine; Referring Provider Family Medicine; Visit Provider Internal Medicine
DX: A41.9 Sepsis, unspecified organism (principal); R65.21 Severe sepsis with septic shock; E87.20 Acidosis, unspecified; K52.9 Noninfective gastroenteritis and colitis, unspecified; I48.91 Unspecified atrial fibrillation; Z79.01 Long term (current) use of anticoagulants
CPT/HCPCS: 36415; 71045; 74177; 80053; 81001; 82805; 82962; 83605; 83690; 83735; 83993; 84145; 84443; 84484; 85025; 85610; 85651; 85730; 86140; 87040; 87497; 87507; 87637; 93005; 93306; 96365; 96366; 96367; 96368; 99284; J0696; J2543; J2919; J7050; J7120; Q9967

== ENCOUNTER 2025-04-29 13:06 | Day surgery (SDC) | payer MEDICARE, OTHER, SELFPAY ==
[2025-02-26 12:27] VITALS: BMI 21.9
[2025-04-19 12:47] VITALS: BMI 22.4
--- NOTE | 2025-04-29 | PATH_ITS ---
[facility] Accession Number: [id number] No. of containers..03 Tissue . 01 Material submitted: . PART A: duodenum - DUODENAL PART B: duodenum bulb - DUODENAL BULB PART C: stomach - STOMACH, ANTRUM . 01 Diagnosis: Part A: DUODENAL: Duodenal mucosa with severe villous blunting and increased intraepithelial lymphocytes. See comment. . Specimen Comments: The features are consistent with celiac disease (Webb type IIIC) in the right clinical setting. . Part B: DUODENAL BULB: Duodenal mucosa with moderate to severe villous blunting and focal ulceration. No dysplasia or malignancy identified. See comment. . Specimen Comments: The presence of focal ulceration raises the possibility of a component of peptic injury or drug-induced ulceration (NSAIDs, etc), possibly superimposed on celiac disease. Clinical correlation is recommended. . Part C: STOMACH, ANTRUM: Gastric mucosa with mild chronic inflammation. No Helicobacter organisms identified. No intestinal metaplasia, dysplasia, or malignancy identified. [facility] 05/05/20251407 Local . 01 Electronically signed: . Hermilo Richard MD, Pathologist NPI- [id number] . 01 Gross description: . A. Received in formalin labeled with two patient identifiers and duodenal biopsy, is a 0.3 cm camp tissue fragment. Entirely submitted in cassette A1. . B. Received in formalin labeled with two patient identifiers and duodenal bulb, are four camp tissue fragments ranging from 0.1 to 0.3 cm. Entirely submitted in cassette B1. . C. Received in formalin labeled with two patient identifiers and antral biopsy, are two camp tissue fragments, both 0.3 cm. Entirely submitted in cassette C1. ([id number]) /SUKH[facility]ER 05/05/20251407 Local . 01 Microscopic: . Part C: ANTRAL: An immunohistochemical stain was performed to evaluate for Helicobacter organisms and is negative. The control stains appropriately. * This test was developed and the performance characteristics were validated by [facility]. It has not been cleared or approved by the Food and Drug Administration. . 01 Pathologist provided ICD-10: K29.50, K90.0 . 01 CPT . 047828, 732169, 143717, [id number] Specimen Comment: A courtesy copy of this report has been sent to [phone] Performed at: [address] [address], [place], [place] [id number] MD Hermilo Richard MD Phone: [phone]
[2025-04-29 13:25] VITALS: BP 106/72; PULSE 87; RESP 16; TEMP 36.1; O2SAT 98
[2025-04-29] MEDS: LACTATED RINGERS 1,000 ML 42 ML IV (13:42)
--- NOTE | 2025-04-29 13:43 | SUR.PREOP ---
Pt w/dx atrial fib approx 2 months ago, no anticoag or b-blockers rx'd. Today pt presents in atrial fib, rate controlled @ 75-87. Pt asymptomatic. Reviewed s/sx of potential TIA/CVA and what to do if any symptoms arise at any time. Pt verbalized understanding. Reviewed w/Dr Lawton, pt on bedside monitor at this time. Await Dr Lawton to evaluate.
--- NOTE | 2025-04-29 13:55 | P.HP_ITS ---
History of Present Illness History of Present Illness Date Patient Seen: 04/29/25 Time Patient Seen: 13:55 Chief complaint: SDC Narrative: Terry is a 69-year-old man with a change in bowel habits. See office note from February for details. [facility] Medical History (Updated 04/19/25 @ 12:40 by Harmony Hughes RN) Acute colitis (02/26/25) New onset a-fib (02/26/25) Surgical History (Updated 04/19/25 @ 12:46 by Harmony Hughes RN) Hx of left knee surgery History of finger surgery (06/10/24) Social History household members: spouse Smoking Status: Never smoker alcohol intake: current Meds Home Medications and Allergies Allergies Allergy/AdvReac Type Severity Reaction Status Date / Time No Known Drug Allergies Allergy Verified 04/29/25 13:22 Exam Vital Signs (past 8 hours): - 04/29/25 13:25 Temperature 96.9 F L Pulse Rate 87 Respiratory Rate 16 Blood Pressure 106/72 Pulse Oximetry 98 Oxygen Delivery Method Room Air Oxygen Delivery Method Room Air Const General: No acute distress Assessment & Plan Assessment and plan (1) Change in bowel habits: Status: Acute Plan EGD and colonoscopy Time-Based Coding :: [TOTAL MINUTES] spent with patient and on the chart (including review of chart, obtaining history, exam, reviewing outside data, placing orders, documenting exam and treatment plan, and counseling patient) on [DATE]. PROFEE Water Registrar Document charge(s): No
[2025-04-29 14:45] VITALS: BP 108/58; PULSE 86; RESP 16; TEMP 36.2; O2SAT 95
--- NOTE | 2025-04-29 14:49 | PM.OP.EC ---
Operative Date/Time/Diagnoses Date of procedure: 04/29/25 Time of procedure: 14:49 Pre-op diagnosis: Change in bowel habits Post-op diagnosis: same Procedure & Clinicians Study performed: EGD and colonoscopy Same procedure(s) as scheduled: Yes Surgeon: Pablito Soares Anesthesia Type: MAC +/- Procedure Notes Procedure in detail: Surgeon: Pablito Soares MD Anesthesia: Cory Lawton D.O. Procedure in detail: A timeout was performed. A bite blocked was placed and monitors were attached to the patient. The patient was positioned in the left lateral decubitus position. Sedation was administered. Once the patient was sedated the endoscope was inserted through the bite block and passed through the esophagus and stomach and into the duodenum. The second portion of the duodenum appeared normal. Random biopsies were taken with the cold forceps. The scope was withdrawn into the duodenal bulb. Multiple small whitish plaque-like lesions were noted throughout the duodenal bulb. Biopsies were taken with the cold forceps from several these lesions. The scope was then withdrawn into the stomach. Random biopsies were taken from the antrum with cold forceps. The endoscope was retroflexed and no hiatal hernia was seen. The endoscope was straightned and withdrawn into the esophagus. The esophagus appeared normal. EGD findings: Small whitish plaque-like lesions throughout the duodenal bulb Next we repositioned the patient for a colonoscopy. A digital rectal exam was performed and was normal. The colonoscope was inserted and advanced to the cecum. The appendiceal orifice was identified and photographed. The scope was slowly withdrawn over greater than 6 minutes. No abnormalities were found within the colon. The scope was retroflexed in the rectum and no abnormalities were seen. Colonoscopy findings: Grossly normal colon. Scope withdrawal time: 9 minutes Sedation minutes: 24 minutes Estimated Blood Loss: 8 Complications: none Post-procedure Disposition: PACU
[2025-04-29 14:50] VITALS: BP 103/74; PULSE 83; RESP 24; O2SAT 95
[2025-04-29 14:54] VITALS: BP 103/68; PULSE 90; RESP 24; TEMP 36.2; O2SAT 98
== END 2025-04-29 15:10 | disposition home or self-care (01) ==
PROVIDERS: PCP Family Medicine; Referring Provider Family Medicine; Visit Provider Surgery
PROC: 0DJ08ZZ Inspection of Upper Intestinal Tract, Via Natural or Artificial Opening Endoscopic (ICD-10-PCS; CPT 43239; principal; 2025-04-29 14:15)
PROC: 0DJD8ZZ Inspection of Lower Intestinal Tract, Via Natural or Artificial Opening Endoscopic (ICD-10-PCS; CPT 45378; 2025-04-29 14:15)
DX: R19.4 Change in bowel habit (principal); K29.50 Unspecified chronic gastritis without bleeding
CPT/HCPCS: 43239; 45378; J2704; J7120